=== PATIENT | male | born 1960 | race Caucasian/White ===

== ENCOUNTER 2018-03-31 13:02 | Inpatient (IN) ==
[2018-03-31] MEDS ORDERED: TORADOL IV ONE (13:11)
[2018-03-31] MEDS ORDERED: ZOFRAN IV ONE (13:11)
[2018-03-31] MEDS ORDERED: MORPHINE IV ONE (13:11)
[2018-03-31] MEDS ORDERED: NS 1,000 ML IV ONE (13:11)
[2018-03-31] MEDS ORDERED: TYLENOL PO ONE (13:17)
[2018-03-31] MEDS ORDERED: ZITHROMAX 500 MG/NS 500 MG/250 ML IVPB IV ONE (13:17)
[2018-03-31] MEDS ORDERED: ROCEPHIN 1 GM in NS 50 ML IV ONE (13:17)
--- NOTE | 2018-03-31 13:52 | Diag Imaging Result Doc PS360 ---
EXAM: CHEST-1 VIEW HISTORY: fall TECHNIQUE: Chest single view COMPARISON: None. FINDINGS: The lungs are well expanded. No contusion. No pneumothorax. The heart is not enlarged. The vessels are not distended. There are no infiltrates. No effusion identified. IMPRESSION: No injury. Electronically signed by Steve Lemus 03/31/2018 1:49 PM
--- NOTE | 2018-03-31 13:53 | Diag Imaging Result Doc PS360 ---
EXAM: XRAY PELVIS W/HIP 2-3VW LT HISTORY: fall, injury TECHNIQUE: Pelvis and left hip, three views COMPARISON: None. FINDINGS: There is a fracture to the left femoral neck extending to the greater trochanter. The femoral head remains in the acetabulum. Femoral shaft is rotated and superiorly placed. IMPRESSION: Proximal left femur fracture. Electronically signed by Steve Lemus 03/31/2018 1:50 PM
--- NOTE | 2018-03-31 14:02 | Diag Imaging Result Doc PS360 ---
EXAM: CT HEAD/C-SPINE W/O CONTRAST INDICATION: head injury/pain TECHNIQUE: This exam was performed using automated exposure control, adjustment of mA or kV according to patient size, and/or use of iterative reconstruction technique. COMPARISON: None. FINDINGS: Head: There is moderate diffuse brain atrophy. There is no definite acute infarct given the limited sensitivity of CT versus MRI. There is no discrete intracranial mass, mass effect, or intracranial hemorrhage. There is left maxillary sinus mucosal disease with partial opacification. The calvaria is intact. C-spine: There is multilevel moderate degenerative disease with loss of disc space height and marginal osteophyte formation at virtually every level. This causing at least mild central canal narrowing at a few levels, probably most significant at C2-3 and C3-4. Otherwise, there is no discrete fracture, subluxation, or intrinsic osseous lesion. The surrounding soft tissues are essentially unremarkable. IMPRESSION: 1.Brain atrophy as described but no evidence of acute intracranial pathology. 2.Multilevel degenerative arthropathy but no evidence of fracture or other definite acute C-spine injury. Electronically signed by Shravan Arias 03/31/2018 2:00 PM
[2018-03-31 14:33] LABS: BASO# 0.05 X1000 (0.0-0.2); BASO% 0.6 % (0.0-0.8); HEMATOCRIT 40.5 % (42.0-52.0); HEMOGLOBIN 13.7 g/dL (14.0-18.0); IMM GRAN# 0.04 X1000 (0.0-0.04); IMM GRAN% 0.5 % (0.0-0.5); LYMPH# 1.68 X1000 (1.2-3.4); LYMPH% 20.8 % (20.5-51.1); MCH 34.9 PG (27-31); MCHC 33.8 g/dL (33-37); MCV 103.3 FL (81-99); MONO# 1.31 X1000 (0.11-0.59); MONO% 16.2 % (1.7-9.3); MPV 9.9 FL (7.4-10.4); NEUT# 4.99 X1000 (1.4-6.5); NEUT% 61.9 % (42.2-75.2); PLT 202 X1000 (130-400); RBC 3.92 XMIL (4.7-6.1); RDW 12.7 % (11.5-14.5); WBC 8.07 X1000 (4.8-10.8)
--- NOTE | 2018-03-31 14:40 | PROVIDER DOCUMENTATION ---
This chart was entered by Guerline Salinas Scribe, acting as scribe for Vic Lam MD. HPI-Musculoskeletal Pain/Inj - GENERAL Chief Complaint: Extremity Pain Stated Complaint: left lower extremity pain Time Seen by Provider: 03/31/18 13:06 Source: patient, EMS, half-way records - HX OF PRESENT ILLNESS-MUSKULOSKELTAL Nature of Presenting Problem: 57 y/o male presents to ED with L hip pain onset this morning. long term staff reports he is typically very active, but did not move this morning. Staff states he had a cough yesterday. Pt is alert and has Downs Syndrome. Quality of Pain: reports: aching, sharp Severity in ED: moderate Onset/Duration: this morning Timing: still present Modifying Factors: worse with: movement Any recent injury?: Yes (fall?) Locality of Occurance: Home Similar Symptoms Previously?: No Recently seen or treated by another doctor?: No - FALL INJURY Location of Pain/Injury: reports: lower extremity Pain Radiation: reports: no radiation Reason for Fall: reports: unknown Symptoms prior to fall:: reports: none Loss of Consciousness: no loss of consciousness Injury Associated Symptoms: reports: joint pain (L hip) - HIP/PELVIS PAIN/INJURY Hip Pain Location: reports: hip (L) Pain Radiation: reports: no radiation Context / Method of Injury: reports: fall (?) Associated Symptoms: reports: denies symptoms - LOWER EXTREMITY PAIN/INJURY Lower Extremities Pain: hip: left Context / Method of Injury: reports: fell (?) Associated Symptoms: reports: denies symptoms Review of Systems - Adult - REVIEW OF SYSTEMS - ADULT ROS:: per care professionals (Lexi) Constitutional: reports: see HPI, chills Eyes: reports: no symptoms reported Ears, Nose, Mouth & Throat: reports: no symptoms reported Cardiovascular: reports: no symptoms reported Respiratory: reports: no symptoms reported Gastrointestinal: reports: no symptoms reported Genitourinary: reports: no symptoms reported Musculoskeletal: reports: no symptoms reported, joint pain (L hip). denies: back pain Integumentary: reports: no symptoms reported Neurological: reports: no symptoms reported Psychiatric: reports: no symptoms reported Endocrine: reports: no symptoms reported Hematologic/Lymphatic: reports: no symptoms reported Allergic/Immunologic: reports: no symptoms reported All Other Systems: Reviewed and Negative Past History - Adult - PAST MEDICAL HISTORY-ADULT Review of Records: reports: Old Records Reviewed, Nursing Assessment Review, Medications Reviewed Major Childhood Illnesses: reports: denies history Cardiovascular: reports: other (aortic insufficiency) Respiratory: reports: sleep apnea Gastrointestinal: reports: GERD Genitourinary: reports: kidney disease Musculoskeletal: reports: arthritis, other (gout) Neurological: reports: cognitive dysfunction (Downs Syndrome), Seizures/Epilepsy Psychiatric: reports: other (OCD) Endocrine/Immune: reports: thyroid disorder (hypo) Other Conditions: reports: rosacea - PRIOR SURGERIES/PROCEDURES Surgical/Procedure History: reports: other (hemorrhoids) - IMMUNIZATION STATUS Childhood Immunizations: See Nurse Assessment Flu Vaccine: See Nurse Assessment - FAMILY HISTORY Family History: reviewed, not pertinent - SOCIAL HISTORY Smoking: non-smoker Substance Use: none/never Alcohol Use Frequency: never Living Situation: group Physical Exam-Injury Related - Physical Exam-Injury Related Initial Vital Signs Reviewed: Yes General Appearance: appears well, alert, no apparent distress, anxious Eyes: PERRL/EOMI, pink conjunctivae, other (strabismus) Head, Ears, Nose, Mouth & Throat: normocephalic/atraumatic, normal ENT inspection, other (Downs; dry mucus membranes) Neck: non-tender, full range of motion Respiratory: chest non-tender, lungs clear, decreased breath sounds Cardiovascular: tachycardia, other (occasional ectopic beats) Abdominal Exam: normal bowel sounds, non tender, soft Back Exam: normal inspection, no CVA tenderness Extremity: normal range of motion, non-tender, normal gait, other (L hip pain with with internal and external rotation) Integumentary: normal color, warm/dry Neurologic: grossly normal Psych/Mental Status: normal mood/affect Progress - PLAN OF CARE/RESULTS Progress/Plan/Lab Results: Vital Signs - 8 hr 03/31/18 13:04 Temperature 101.6 F H Pulse Rate 101 H Respiratory Rate 19 Blood Pressure 131/72 O2 Sat by Pulse Oximetry 91 L Laboratory Results - last 24 hr 03/31/18 14:10 WBC 8.07 RBC 3.92 L Hgb 13.7 L Hct 40.5 L MCV 103.3 H MCH 34.9 H MCHC 33.8 RDW Std Deviation 12.7 Plt Count 202 MPV 9.9 Immature Gran % (Auto) 0.5 Neut % (Auto) 61.9 Lymph % (Auto) 20.8 [place] % (Auto) 16.2 H Eos % (Auto) 0.0 Baso % (Auto) 0.6 Immature Gran # (Auto) 0.04 Neut # (Auto) 4.99 Lymph # (Auto) 1.68 [place] # (Auto) 1.31 H Eos # (Auto) 0.00 Baso # (Auto) 0.05 Orders Category Date Time Status [facility] Insertion ORDERED Care 03/31/18 13:52 Active [facility] Loc NOW Care 03/31/18 13:09 Active CHEST-1 VIEW [RAD] Stat Exams 03/31/18 13:[address] HEAD/C-SPINE W/O CONTRAST [CT] Stat Exams 03/31/18 13:11 Completed XRAY PELVIS W/HIP 2-3VW LT [RAD] Stat Exams 03/31/18 13:11 Completed BLOOD CULTURE [BLDCUL] Stat Lab 03/31/18 13:16 Ordered CBC WITH ELECTRONIC DIFF [HEME] Stat Lab 03/31/18 14:10 Completed COMPREHENSIVE METABOLIC PANEL [CHEM] Stat Lab 03/31/18 14:10 Received LACTATE, PLASMA [CHEM] Stat Lab 03/31/18 14:10 Received MAGNESIUM [CHEM] Stat Lab 03/31/18 14:10 Received PRO B-NATRIURETIC PEPTIDE Stat Lab 03/31/18 14:10 Received PROTIME WITH INR [COAG] Stat Lab 03/31/18 14:10 Received TROPONIN T Stat Lab 03/31/18 14:10 Received TYPE & SCREEN [BBK] Stat Lab 03/31/18 14:[address] W/POSS RFLX CULT [URINALYSIS] Stat Lab 03/31/18 13:10 Uncollected VALPROIC ACID [TDM] Stat Lab 03/31/18 14:10 Received 0.9% Sodium Chloride Inj [Ns] 1,000 ml Med 03/31/18 13:11 Discontinued IV 999 mls/hr Acetaminophen [Tylenol] Med 03/31/18 13:17 Discontinued 1,000 mg PO NOW ONE Azithromycin 500 mg/Ns [Zithromax 500 mg/Ns] Med 03/31/18 13:17 Discontinued 500 mg in 250 ml IV NOW CefTRIAXONE [Rocephin] 1 gm Med 03/31/18 13:17 Discontinued 0.9% Sodium Chloride Inj [Ns] 50 ml IV NOW Ketorolac [Toradol] Med 03/31/18 13:11 Discontinued 30 mg IV NOW ONE Morphine Med 03/31/18 13:11 Discontinued 2 mg IV NOW ONE Ondansetron [Zofran] Med 03/31/18 13:11 Discontinued 4 mg IV NOW ONE EKG [EKG] Stat Ther 03/31/18 13:09 Ordered Result Diagrams: 03/31/18 14:10 - REASSESSMENT Reassessment #1 Time Reassessed: 14:38 Status: improving (better after pain meds. Given tylenol, IVF, IV rocephin/ zithromax for poss pne.) - EKG 1 Time of EKG reading by physician:: 13:19 EKG Read and Signed by:: Vic Lam EKG Interpretation (*Must complete 3 of following elements*): Abnormal Rate: 98 Rhythm: Sinus w/ premature atrial complexes w/ aberrant conduction Carver: normal QRS: poor R wave progression, other (L anterior fascicular block; inferior infarct) CO Interval: normal ST Wave: normal - XRAY 1 XRAY: Left XRAY Study: Pelvis, Hip Impression: Abnormal (FINDINGS: There is a fracture to the left femoral neck extending to the greater trochanter. The femoral head remains in the acetabulum. Femoral shaft is rotated and superiorly placed. IMPRESSION: Proximal left femur fracture. Electronically signed by Stevekike Lemus 03/31/2018 1:50 PM) 2 XRAY Study: Chest Impression: Normal (FINDINGS: The lungs are well expanded. No contusion. No pneumothorax. The heart is not enlarged. The vessels are not distended. There are no infiltrates. No effusion identified. IMPRESSION: No injury. Electronically signed by Stevekike Lemus 03/31/2018 1:49 PM) - CT/MRI 1 CT Study: Cervical Spine, Head Impression: Normal (Head: There is moderate diffuse brain atrophy. There is no definite acute infarct given the limited sensitivity of CT versus MRI. There is no discrete intracranial mass, mass effect, or intracranial hemorrhage. There is left maxillary sinus mucosal disease with partial opacification. The calvaria is intact. C-spine: There is multilevel moderate degenerative disease with loss of disc space height and marginal osteophyte formation at virtually every level. This causing at least mild central canal narrowing at a few levels, probably most significant at C2-3 and C3-4. Otherwise, there is no discrete fracture, subluxation, or intrinsic osseous lesion. The surrounding soft tissues are essentially unremarkable. IMPRESSION: 1.Brain atrophy as described but no evidence of acute intracranial pathology. 2.Multilevel degenerative arthropathy but no evidence of fracture or other definite acute C- spine injury. Electronically signed by Shravan Arias 03/31/2018 2:00 PM) - CONSULTS/PCP/HOSPITALIST Notification #1 *Consult/PCP/Hospitalist*: Dr. Morrell Time Discussed: 14:04 Reason/Comments: Downs; fever; L hip fracture; tachycardia Consult Disposition: Admit (at [facility]) #2 Consult: Dr. Root Time Discussed: 14:19 Reason/Comments: L hip fracture Consult Disposition: Admit (to [facility]) Departure - Departure Date of Disposition Decision: 03/31/18 Time of Disposition Decision: 14:37 DIAGNOSIS: Left displaced femoral neck fracture, Down's syndrome, Bronchitis Fall as cause of accidental injury at home as place of occurrence Qualifiers: Encounter type: initial encounter Qualified Code(s): W19.XXXA - Unspecified fall, initial encounter; Y92.009 - Unspecified place in unspecified non- institutional (private) residence as the place of occurrence of the external cause Fever Qualifiers: Fever type: unspecified Qualified Code(s): R50.9 - Fever, unspecified Aortic stenosis Qualifiers: Cardiac valve disease etiology: nonrheumatic Qualified Code(s): I35.0 - Nonrheumatic aortic (valve) stenosis Disposition: ADMITTED INPATIENT 09 Certified Medical Emergency: Emergent Condition: Fair Referrals and Follow-Ups: None,PCP [Primary Care Provider] - - Critical Care Note This patient required my direct & personal management of CC.: No Attestation - Physician/ KARIME Attestation Patient care was provided by Advanced Practice Provider:: No The physician spent face to face time with patient:: Yes Advanced Practice Provider documentation review:: Supervising physician onsite and consulted in the evaluation and care of this patient. The physician did have a face to face encounter with the patient. This chart was documented by the indicated scribe, (Guerline Salinas Scribe) and accurately reflects the services I performed and decisions made by , Vic Lam MD, as attested by the provider's signature.
--- NOTE | 2018-03-31 14:45 | EKG Report ---
Test Performed on : 03/31/2018 1:19:57 PM Test Reason : fall Blood Pressure : / mmHG Vent. Rate : 098 BPM Atrial Rate : 098 BPM P-R Int : 128 ms QRS Dur : 062 ms QT Int : 340 ms P-R-T Axes : 057 -46 023 degrees QTc Int : 434 ms Sinus rhythm. with premature atrial complexes. with aberrant conduction. Left anterior fascicular block Inferior infarct , age undetermined Abnormal ECG No previous ECGs available Unconfirmed Result
[2018-03-31 14:46] LABS: INR 1.08; PROTIME 14.6 Seconds (11.0-16.0)
[2018-03-31 14:51] LABS: AGAP 9; ALBUMIN 3.1 g/dL (3.5-5.0); ALKALINE PHOSPHATASE 66 U/L (32-122); BUN 16 mg/dL (8-22); CALCIUM 8.7 mg/dL (8.8-10.2); CHLORIDE 100 mmol/L (98-107); COSMO 280; CREATININE 1.1 mg/dL (0.7-1.2); ESTIMATED GFR > 60; GLUCOSE 185 mg/dL (70-104); GOT 35 U/L (10-34); GPT 10 U/L (10-44); POTASSIUM 4.8 mmol/L (3.5-5.1); SODIUM 137 mmol/L (136-145); TCO2 28 mmol/L (25-35); TOTAL PROTEIN 6.3 g/dL (6.3-8.3)
[2018-03-31 15:42] LABS: BILIRUBIN URINE NEGATIVE (NEGATIVE); BLOOD URINE 2+ (NEGATIVE); CLARITY SL. CLOUDY (CLEAR); COLOR YELLOW; GLUCOSE URINE NEGATIVE (NEGATIVE); KETONE URINE TRACE mg/dL (NEGATIVE); LEUKOCYTES URINE NEGATIVE (NEGATIVE); NITRITE URINE NEGATIVE (NEGATIVE); PROTEIN URINE NEGATIVE (NEGATIVE); UROBILINOGEN URINE NORMAL
[2018-03-31 15:43] LABS: URINE BACTERIA 2+ /HFP; URINE CAST NONE SEEN /LPF; URINE CRYSTAL NONE SEEN /HPF; URINE EPITHELIAL CELLS <10 /HPF (<10); URINE RBC <10 /HPF (<10); URINE SOURCE CATH; URINE WBC <10 /HPF (<10); URINE YEAST NONE SEEN /HPF
[2018-03-31 16:56] LABS: INFLUENZA A NEGATIVE (NEGATIVE); INFLUENZA B NEGATIVE (NEGATIVE)
[2018-03-31] MEDS ORDERED: ZOFRAN IV PRN (17:56)
[2018-03-31] MEDS: NS 1,000 ML IV SCH (21:21)
--- NOTE | 2018-03-31 21:25 | HISTORY AND PHYSICAL ---
CHIEF COMPLAINT: Left hip pain, onset this morning. HISTORY OF PRESENTING ILLNESS: This is a 57-year-old male who resides at the [facility] us[facility] locally. Has a history of Down syndrome. This morning the caregiver was going to get him up and he screamed out in pain and could not bear weight. He is normally up and active and ambulates himself. Staff that is with him presently is not aware of any falls. Nothing had been reported on off going shifts at the usp as well. They are doing an internal investigation there to determine if he possibly could have had a fall that and when he was last known normal. His workup in the emergency room showed a left hip and pelvic x-ray with a proximal left femur fracture, so he will be admitted to the [facility] for Orthopedic consultation and further evaluation and treatment. PAST MEDICAL HISTORY: Down syndrome, sleep apnea, GERD, chronic kidney disease, seizure, OCD, hypothyroidism and rosacea. PAST SURGICAL HISTORY: Hemorrhoidectomy. FAMILY HISTORY: Reviewed and noncontributory. SOCIAL HISTORY: Currently resides in a local usp. Denies any tobacco, alcohol or illicit drug use. ALLERGIES: Metoclopramide. HOME MEDICATIONS: A current list will need to be obtained and we will restart as appropriate. LABORATORY DATA: Showed a white blood cell count of 8.07, hemoglobin 13.7, hematocrit 40.5, platelets 202,000. PT and INR of 14.6 and 1.08. Sodium of 137, potassium 4.8, chloride 100, CO2 28, BUN of 16, creatinine of 1.1, glucose of 185, magnesium of 2. Troponin less than 0.010. ProBNP of 284. Plasma lactate of 2.6, valproic acid level is 61.10. Chest x-ray showed no injury. Head CT showed brain atrophy, but no evidence of acute intracranial pathology. CT of the cervical spine showed multilevel degenerative arthropathy, but no evidence of fracture or other definite acute cervical spine injury. Left hip pelvic x-ray showed a proximal left femur fracture. REVIEW OF SYSTEMS: Unable to obtain from patient. PHYSICAL EXAMINATION: He had a temperature of a 101.6, pulse 101, respirations 19, blood pressure 131/72, saturating 91% on room air. GENERAL: This is a 57-year-old male who is lying in the bed, but unable to answer questions appropriately at this time. HEENT: Normocephalic, atraumatic. Normal ENT inspection. Oropharynx and nares are clear. Eyes: Pupils are equal, round, reactive to light and accommodation. Extraocular movements are intact. NECK: Normal inspection. Normal range of motion. LUNGS: Clear to auscultation bilaterally with equal lung expansion and chest wall movement. HEART: With regular rate and rhythm. No murmurs, rubs or gallops. ABDOMEN: Soft, nontender, nondistended. Bowel sounds are present x 4 quadrants. MUSCULOSKELETAL: Unable to assess at this time. He does have left hip pain with any movement of his left extremity. NEUROLOGIC: The cranial nerves 2-12 appear grossly intact. ASSESSMENT: 1. Left femur fracture. 2. Fever. 3. Down syndrome. 4. Seizure disorder. Stable. PLAN: He will be admitted to the [facility]. We will consult Orthopedics. We will place him on a regular diet at this time until he is seen by Orthopedics. We will give him morphine 2 mg IV q.3 hours p.r.n., Zofran 4 mg IV q.4 hours p.r.n. We will recheck a CBC, BMP in the a.m. We will update and restart his home medications as appropriate, and further orders after being seen by attending and by Orthopedics. Dictated by PUNEET Maldonado for Sal Morrell MD cc: PUNEET Maldonado MD
--- NOTE | 2018-03-31 23:01 | HISTORY AND PHYSICAL ---
ADDENDUM: The patient presented with fever and altered mentation. He does have Down syndrome. He is a senior living patient. He has left hip pain since admission. He is usually very active, but today he is not as much. There is some concern over cough. When I saw him, he is just pretty out of it, sedated. He does open eyes, but he does not really communicate or talk. His workup was really unremarkable as far as infectious. Urine looked clear. No white count. Chest x-ray was clear. However, he does have a left femoral neck fracture which is the main reason he was transferred to [facility]. However, he does have some altered mentation, which there is not a clear reason for. Additionally, he has had fever but no white count. He has been empirically placed on Rocephin. It is certainly possible he could have aspirated. I am going to go ahead and CT his abdomen, pelvis and thorax to evaluate for fever and consider an ID consult if we do not have a clear etiology. I am going to continue the Rocephin for the time being and we will see how he does. If this is unrevealing and he has persistent fevers, we may have to consider other testing including LP and other guidelines per Dr. Hanley. Fever also could simply just be due to his fracture, so we will continue to monitor. On exam, really unremarkable. He is pale. He does open his eyes, but does not speak. His left and right legs are both externally rotated without evidence of any issues there. This is a [id number] encounter note with No Sanders. Further care per hospitalist group at the [facility]. cc: Sal Morrell MD
[2018-04-01] MEDS: NS 1,000 ML IV SCH ×2 (05:33→20:43)
[2018-04-01 06:12] LABS: BASO# 0.06 X1000 (0.0-0.2); EOS# 0.02 X1000 (0.0-0.7); EOS% 0.3 % (0.0-10.0); HEMATOCRIT 37.9 % (42.0-52.0); HEMOGLOBIN 12.2 g/dL (14.0-18.0); IMM GRAN# 0.06 X1000 (0.0-0.04); LYMPH# 1.25 X1000 (1.2-3.4); LYMPH% 20.1 % (20.5-51.1); MCH 34.6 PG (27-31); MCHC 32.2 g/dL (33-37); MCV 107.4 FL (81-99); MONO# 1.28 X1000 (0.11-0.59); MONO% 20.5 % (1.7-9.3); MPV 9.6 FL (7.4-10.4); NEUT# 3.56 X1000 (1.4-6.5); NEUT% 57.1 % (42.2-75.2); PLT 164 X1000 (130-400); RBC 3.53 XMIL (4.7-6.1); RDW 13.2 % (11.5-14.5); WBC 6.23 X1000 (4.8-10.8)
[2018-04-01 06:26] LABS: AGAP 5; BUN 17 mg/dL (8-22); CALCIUM 8.3 mg/dL (8.8-10.2); CHLORIDE 103 mmol/L (98-107); COSMO 280; CREATININE 1.2 mg/dL (0.7-1.2); ESTIMATED GFR > 60; GLUCOSE 111 mg/dL (70-104); POTASSIUM 4.7 mmol/L (3.5-5.1); SODIUM 139 mmol/L (136-145); TCO2 31 mmol/L (25-35)
[2018-04-01 06:47] LABS: LYMPHS 30 % (21-51); MONO 26 % (1-9); SEGS 44 % (42-75)
--- NOTE | 2018-04-01 06:58 | Diag Imaging Result Doc PS360 ---
EXAM: CT ABDOMEN/PELVIS W/WO SIVAKUMARAS 03/31/2018 HISTORY: fever, ams TECHNIQUE: This exam was performed using automated exposure control, adjustment of mA or kV according to patient size, and/or use of iterative reconstruction technique. COMMENT: There are no previous studies available for comparison. There is patchy air trapping in the lung bases with some increased interstitial markings particularly in the left costophrenic sulcus. Possibility of mild interstitial pulmonary edema cannot be excluded. There is dilatation and mucosal thickening in the distal esophagus. No air-fluid level is present however. There is no evidence of nephrolithiasis or hydronephrosis. There has been cholecystectomy. There is no evidence of abdominal aortic aneurysm and the mesenteric and renal arteries are patent. The pancreas is unremarkable. There are some calcified granulomata in the liver and spleen. The adrenal glands and spleen are not enlarged. The liver is otherwise unremarkable. There are no renal masses. There are some retained gastric contents. There is some gas and fluid within the small bowel without evidence of dilatation. There is fecal debris throughout the colon. Pelvis: The appendix is normal in appearance. There is a St catheter in the bladder which is completely empty. There is no evidence of free fluid. There are no masses and there is no evidence of significant adenopathy. Some dilatation of the distal left ureter is present however there is no evidence of ureterolithiasis. There is an intertrochanteric fracture of the left femur. There is bilateral spondylolysis at L5 and degenerative disc changes throughout the lumbar spine, but particularly at the L2-3 and L3-4 levels. IMPRESSION: The possibility of distal esophagitis cannot be excluded. Mild interstitial pulmonary edema and basilar air trapping. Left intertrochanteric femoral fracture. Degenerative changes in the lumbar spine with spondylolysis at L5. Electronically signed by Markel Duval 04/01/2018 6:56 AM
--- NOTE | 2018-04-01 10:25 | INFECTIOUS DISEASE CONSULT REP ---
DATE: 04/01/2018 CONCLUSION: The patient is seen for evaluation of fever. I think the patient's fever is secondary to urinary tract infection. RECOMMENDATIONS: I have discontinued Rocephin and have placed the patient on cefepime. DISCUSSION: Patient has Down syndrome and is unable to provide a history. The patient's nurse at the intermediate where the patient lives was present, as was his mother. The patient developed fever while he was at the intermediate. He fell and also fractured his left hip. His CBC shows a white count of 6230, hemoglobin 12.2, and platelet count 164,000. Creatinine is 1.2. GFR is greater than 60. Chest x-ray shows it is normal. Swab for influenza is negative. Urinalysis showed bacteria, but no white cells. Blood and urine cultures are pending. CT scan of the abdomen and pelvis shows possible esophagitis and pulmonary edema. PAST MEDICAL HISTORY: Patient has Down syndrome, benign prostatic hypertrophy, sleep apnea, gastroesophageal reflux disease, chronic kidney disease, seizure disorder, OCD, hypothyroidism, and rosacea. PAST SURGICAL HISTORY: Positive for hemorrhoidectomy. FAMILY HISTORY: Positive for diabetes mellitus, hypertension, myocardial infarction. SOCIAL HISTORY: The patient lives in a intermediate. He does not smoke cigarettes, drink alcoholic beverages or use illicit drugs. ALLERGY: The patient has an allergy to metoclopramide. MEDICATIONS: The patient's home medications include the following: Bentyl, Depakote, Lexapro, Synthroid, omeprazole, risperidone, sulfa, tamsulosin and trazodone. PHYSICAL EXAMINATION: Vital Signs: Temperature earlier was 102. The latest temperature now is 98.9, pulse 104, respirations 16, blood pressure 114/61. Patient weighs 160 pounds. General: This is an ill-appearing, middle-aged male. He is in no acute distress. Head/eyes/ears/nose/throat: No drainage is noted from the nose or ears. Patient did not open his mouth, so I was unable to examine it. Neck: No meningismus. Lungs: Clear to auscultation. Cardiovascular: Regular heart rate. Abdomen: Soft and nontender. Extremities: The patient's left great toe has a small ecchymosis on it. The patient did fall on that leg with resulting hip fracture and possibly the ecchymosis, which is very small on the great toe occurred when the patient fell. Neurologic: The patient is awake. He did not carry on a conversation with me. He did not move his extremities to request. Integument: No rash noted. Thank you for the consult. cc: Reginald Hanley MD
--- NOTE | 2018-04-01 10:31 | Diag Imaging Result Doc PS360 ---
EXAM: CT THORAX W/CONTRAST 04/01/2018 HISTORY: pneumonia TECHNIQUE: This exam was performed using automated exposure control, adjustment of mA or kV according to patient size, and/or use of iterative reconstruction technique. COMMENT: There is some ill-defined opacity in the medial portion of the right upper lobe. There is increased interstitial opacity in the costophrenic sulcus of both lower lobes particularly the left lower lobe. No dense consolidation is present. 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 The esophagus is slightly distended with gas. There is no evidence of significant adenopathy. There may be a hiatal hernia. The thoracic aorta is normal in caliber and there is no evidence of dissection. There is no evidence of pulmonary emboli. No abnormal fluid collections are present. The visualized skeleton is intact. IMPRESSION: Basilar pulmonary edema versus mild pneumonia. Questionable pneumonia in the right upper lobe. Electronically signed by Markel Duval 04/01/2018 10:29 AM
[2018-04-01] MEDS: MAXIPIME 2 GM in NS 100 ML IV SCH ×2 (10:48→20:45)
--- NOTE | 2018-04-01 12:47 | CONSULTATION ---
DATE OF CONSULTATION: 04/01/2018 CHIEF COMPLAINT: Hip pain on the left side. HISTORY OF PRESENT ILLNESS: This is a 58-year-old male who lives in a local halfway in [place]. His family reports he has a history of Down syndrome. One of the caregivers at the group homes reported that he screamed out in pain and he cannot bear any weight on the left leg. They report that he is normally an active person and ambulates by himself. Family and staff are not aware of the patient following anytime soon. They are also not aware of him having any kind of fever or infection lately. He was seen in the emergency department and CT scans/pelvic x-ray show an intertrochanteric fracture of the left femur. He was admitted to the hospitalist at [facility]. Family wishes to proceed with surgical fixation of the hip at this time. PAST MEDICAL HISTORY: Down syndrome, sleep apnea, GERD, chronic kidney disease, seizures, OCD, hypothyroidism, rosacea. PAST SURGICAL HISTORY: Hemorrhoidectomy. FAMILY HISTORY: Noncontributory. SOCIAL HISTORY: Currently, he lives in a halfway. Denies alcohol, tobacco, or illicit drugs. ALLERGIES: He is allergic to metoclopramide. HOME MEDICATIONS: They are currently working on the list of his home medications. The family reports that he does take Keppra for seizures. LABORATORY DATA: White blood cells 6.23, hemoglobin 12.2, hematocrit 37.9, INR 1.08. Sodium 139, potassium 4.7. BUN 17, creatinine 1.2, glucose 111. ProBNP is 284. The urine was cloudy and showed 2+ blood and 2+ bacteria. Valproic acid level was 61.10. His flu swab was negative. CT scan of the pelvis shows a left intertrochanteric femur fracture. REVIEW OF SYSTEMS: Ten-point review of systems was obtained and listed in the HPI. PHYSICAL EXAMINATION: Vital Signs: Temperature 99.6 axillary, pulse rate 108, respiratory rate 24, blood pressure 125/67, O2 saturation was 89 on 1.5 L. General: The patient is awake and unable to answer questions at this time. HEENT: Normocephalic, atraumatic. Normal ENT inspection. Neck: He has normal range of motion. Chest: There is equal chest expansion. Heart: There is some tachycardia with a regular rate and rhythm. Abdomen: Soft, nontender. MUSCULOSKELETAL: The left leg is externally rotated and slightly shortened. There is mild tenderness to touch to the lateral aspect of the left hip. There is negative Homans sign. There is good pedal pulses. There is no redness or signs of infection about the hip. ASSESSMENT: 1. Left intertrochanteric femur fracture. 2. Fever. 3. Down syndrome. 4. Seizure disorder that is stable. PLAN: We will monitor this patient at this time. We will plan a trochanteric fixation nail of the left femur at some point during this hospital stay. We will take the recommendations from Infectious Disease. The family agrees that if he is still having fever, they do not want to have surgery at this time. They do agree with the plan to do TFN on the left hip. All questions were answered. Thank you again for this consult. Dictated by PUNEET Taylor for Matthew Hoover MD cc: PUNEET Taylor MD
[2018-04-01] MEDS: TYLENOL PO PRN (13:06)
[2018-04-01] MEDS ORDERED: ROCEPHIN 1 GM in NS 50 ML IV SCH (14:30)
--- NOTE | 2018-04-01 15:15 | CONSULTATION ---
DATE OF CONSULTATION: 04/01/2018 ADDENDUM: Since I saw the patient and looked at his radiographic and laboratory studies, a CT scan of the thorax has been obtained on the patient. The impression of the radiologist was that the patient has basilar pulmonary edema versus mild pneumonia. There also is a questionable pneumonia in the right upper lobe. The patient is on cefepime, which I think would be good treatment for the patient's presumed urinary tract infection, and also I think it would be a good treatment in case the patient does have pneumonia as well. cc: Reginald Hanley MD
--- NOTE | 2018-04-01 19:53 | PROGRESS NOTE ---
DATE: 04/01/2017 SUBJECTIVE: Patient is sleeping comfortable. Sister who is at bedside report that he was doing fine. He was able to sleep last night. He was not complaining of any pain this morning. OBJECTIVE: Vital Signs: Temperature 101.1 degrees, heart rate 108, respiratory rate 24, blood pressure 125/67, O2 saturation of 97% on 2 L nasal cannula. General: This is a chronically ill- looking 58-year-old male with history of Down syndrome lying in bed sleeping comfortable no acute distress. Cardiovascular: S1, S2 heard. No murmurs, gallops, or rubs. Regular rate and rhythm. Respiratory: Clear bilaterally to auscultation. No work of breathing or using accessory muscles. Abdomen: Soft, nontender to palpation, bowel sounds present. No organomegaly. Extremities: No clubbing, cyanosis, or edema. Peripheral pulses present in both legs. Neurological: The patient is sleepy, not able to evaluate him at this time. LABORATORY DATA: White cell count 6.23, hemoglobin 12.2, hematocrit 37.9, platelets 164,000 with normal BMP and chest CT showed basilar pulmonary edema versus mild pneumonia questionable pneumonia in the right upper lobe. ASSESSMENT AND PLAN: 1. Left femur fracture. Orthopedics has been consulted but family reports that he does not want to have any surgery unless infection is treated. I talked to them and explained to them that it is reasonable to wait for him to be 24 to 48 hour afebrile in order to proceed with surgery they expressed the understanding and I think at this point most likely surgery will be performed on Wednesday of course if okay with Orthopedics help appreciated. 2. Down syndrome aware. 3. Seizure disorder aware. Patient has been restarted on home medication. 4. Disposition. Will continue to monitor this patient closely. Most likely will wait 24 to 48 hours afebrile to see to perform surgery. cc: Gino Rebolledo MD
[2018-04-01] MEDS: MORPHINE IV PRN (20:42)
[2018-04-01] MEDS: AZULFIDINE PO SCH (20:48)
[2018-04-01] MEDS: RISPERDAL PO SCH (20:48)
[2018-04-01] MEDS: DESYREL PO SCH (20:48)
[2018-04-01] MEDS: DEPAKOTE ER PO SCH (20:48)
[2018-04-01] MEDS: FLOMAX PO SCH (20:48)
[2018-04-02] MEDS: NS 1,000 ML IV SCH ×3 (04:32→21:40)
[2018-04-02] MEDS ORDERED: NARCAN IV ONE (05:59)
[2018-04-02] MEDS ORDERED: NARCAN ONE (06:05)
[2018-04-02] MEDS: SYNTHROID PO SCH (06:34)
[2018-04-02] MEDS: AZULFIDINE PO SCH ×3 (06:36→21:15)
[2018-04-02] MEDS: MAXIPIME 2 GM in NS 100 ML IV SCH ×2 (10:55→22:30)
[2018-04-02] MEDS: LEXAPRO PO SCH (10:58)
[2018-04-02] MEDS: RISPERDAL PO SCH ×2 (10:58→21:16)
--- NOTE | 2018-04-02 12:10 | PROGRESS NOTE ---
DATE: 04/02/2018 SUBJECTIVE: The patient is a pleasant 58-year-old male with a left intertrochanteric femur fracture. He is currently undergoing evaluation for a questionable urinary tract infection and questionable pneumonia. He is currently resting comfortably. OBJECTIVE: On physical exam the patient's leg is held in an externally rotated position. He has tenderness with any palpation or general movement. The calf is soft. LABORATORY DATA: His WBC from yesterday was 6.23. hemoglobin 12.2, hematocrit 37.9, and platelets 164. IMPRESSION: Left intertrochanteric femur fracture. PLAN: Discuss treatment options with the patient's sister and would recommend proceeding with intramedullary nailing of the left femur once he is medically cleared. All questions were answered and we will await preoperative medical clearance. cc: Matthew Hoover MD
[2018-04-02 12:26] LABS: AGAP 9; BUN 10 mg/dL (8-22); CALCIUM 8.9 mg/dL (8.8-10.2); CHLORIDE 98 mmol/L (98-107); COSMO 277; CREATININE 0.9 mg/dL (0.7-1.2); ESTIMATED GFR > 60; GLUCOSE 133 mg/dL (70-104); POTASSIUM 4.3 mmol/L (3.5-5.1); SODIUM 138 mmol/L (136-145); TCO2 31 mmol/L (25-35)
[2018-04-02 12:35] LABS: BASO# 0.05 X1000 (0.0-0.2); BASO% 0.7 % (0.0-0.8); EOS# 0.04 X1000 (0.0-0.7); EOS% 0.5 % (0.0-10.0); HEMATOCRIT 35.9 % (42.0-52.0); HEMOGLOBIN 12.3 g/dL (14.0-18.0); LYMPH% 17.7 % (20.5-51.1); MCH 35.8 PG (27-31); MCHC 34.3 g/dL (33-37); MCV 104.4 FL (81-99); MONO# 1.22 X1000 (0.11-0.59); MONO% 16.6 % (1.7-9.3); MPV 9.4 FL (7.4-10.4); NEUT# 4.74 X1000 (1.4-6.5); NEUT% 64.5 % (42.2-75.2); PLT 175 X1000 (130-400); RBC 3.44 XMIL (4.7-6.1); RDW 12.8 % (11.5-14.5); WBC 7.35 X1000 (4.8-10.8)
[2018-04-02] MEDS ORDERED: VANCOMYCIN IV PER PHARMACY MISC SCH (13:00)
[2018-04-02 13:07] LABS: BANDS 2 % (0-1); EOS 2 % (1-10); LYMPHS 16 % (21-51); MONO 14 % (1-9); SEGS 66 % (42-75)
--- NOTE | 2018-04-02 13:30 | PROGRESS NOTE ---
DATE: 04/02/2018 SUBJECTIVE: The patient is awake and according to sister who is at bedside patient is his baseline. He had fever 100.4 today. OBJECTIVE: Vital Signs: Temperature 100.7, heart rate 98, respiratory rate 16 , blood pressure 111/60, O2 sat 94% on 4 L nasal cannula. General: This is a chronically ill- looking, 58-year-old male with history of Down syndrome lying in bed, awake, of course. Does not answer any questions. Cardiovascular: S1, S2 heard. No murmurs, gallops or rubs. Regular rate and rhythm. Respiratory: Clear bilaterally to auscultation. No work of breathing or using accessory muscles. Abdomen: Soft, nontender to palpation. Bowel sounds present. No organomegaly. Extremities: No clubbing, cyanosis or edema. Peripheral pulses present in both legs. Neurologic: Patient is an awake. Is nonverbal. Moves 4 extremities spontaneously. LABORATORY DATA: White cell count 7.35, hemoglobin 12.3, hematocrit 35.9, platelets 175,000. Normal BMP. ASSESSMENT AND PLAN: 1. Left femur fracture. Orthopedics planning to do surgical fixation of this, but they require medical clearance. The patient continues to spike fever and he is on cefepime. I think if we add vancomycin to his current treatment, I think this patient will be much better and I think he will be able to undergo surgery tomorrow. 2. Down syndrome, aware. Will continue home medications. 3. Seizure disorder, aware. The patient has been restarted on home medications. 4. Disposition: I think at this point we will continue to monitor this patient closely and the patient has been cleared medically so if he can have surgery tomorrow as per Orthopedics I still think it is reasonable. Addendum: Patient as per nurse became very obtunded and he was very difficult to arouse. He has history of seizures and apparently he has had one in the floor. At this point I will send patient to ICU for better monitoring, request EEG and Neuro consult for Wednesday. It is very to tell if because of seizures and fever this patient is developing a meningitis or encephalitis. He has UTI and mild pneumonia. He was on Cefepime and considering that he continues to have fever I will add Vancomycin to his current treatment and will wait for Dr. Hanley to make any modifications to his antibiotics if needed. Will monitor patient closely. cc: Gino Rebolledo MD [facility]
[2018-04-02 14:18] LABS: ALLEN TEST NO; BE 8.3 mmoll (-3.0-3.0); BLOOD TYPE ARTERIAL; HCO3-(ACT) 31.4 mmoll (20.0-26.0); METHB 0.7 % (0.0-1.5); O2(CT) 15.6 mL/dL (15.0-23.0); O2HB 96.4 % (95.0-99.0); PCO2(98.6) 48 mmHg (35-45); PO2(98.6) 174 mmHg (60-100); SAMPLE BLOOD; SAO2 98.4 % (95.0-100.0); THB 11.2 g/dL (11.5-17.4); pH(98.6) 7.45 (7.35-7.45)
[2018-04-02 14:19] LABS: MODALITY PRB
[2018-04-02] MEDS ORDERED: ATIVAN IV PRN (14:22)
--- NOTE | 2018-04-02 14:22 | Diag Imaging Result Doc PS360 ---
EXAM: CHEST-PORTABLE 04/02/2018 HISTORY: nonresponsive TECHNIQUE: AP portable at 1412 COMMENT: There is ill-defined opacity over the right base which was not the case on 03/31/2018. IMPRESSION: Atelectasis versus pneumonia right lower lobe. Electronically signed by Markel Duval 04/02/2018 2:20 PM
[2018-04-02] MEDS ORDERED: VANCOMYCIN 2,000 MG in NS 500 ML IV ONE (14:30)
--- NOTE | 2018-04-02 20:56 | Diag Imaging Result Doc PS360 ---
EXAM: CHEST-PORTABLE 04/02/2018 HISTORY: desaturation TECHNIQUE: AP portable at 2046 COMMENT: There is increased opacity and volume loss in the right lower lobe compared to 1412. IMPRESSION: Atelectasis versus pneumonia right lower lobe. Electronically signed by Markel Duval 04/02/2018 8:53 PM
[2018-04-02] MEDS ORDERED: DEMEROL IV ONE ×3 (20:57→21:19)
[2018-04-02] MEDS ORDERED: OFIRMEV 1000 MG/ISOTONIC SOLN 1,000 MG/100 ML BOTTLE IV ONE ×2 (20:57→21:00)
[2018-04-02 21:10] LABS: ALLEN TEST YES; BE 7.1 mmoll (-3.0-3.0); BLOOD TYPE ARTERIAL; METHB 0.7 % (0.0-1.5); O2(CT) 12.5 mL/dL (15.0-23.0); PCO2(98.6) 42 mmHg (35-45); SAMPLE BLOOD; SAO2 77.6 % (95.0-100.0); THB 11.7 g/dL (11.5-17.4); pH(98.6) 7.48 (7.35-7.45)
[2018-04-02 21:13] LABS: MODALITY NRB; O2HB 76.2 % (95.0-99.0); PO2(98.6) 36 mmHg (60-100)
[2018-04-02] MEDS: DEPAKOTE ER PO SCH (21:15)
[2018-04-02] MEDS: FLOMAX PO SCH (21:16)
[2018-04-02] MEDS: DESYREL PO SCH (21:16)
[2018-04-02] MEDS ORDERED: DEMEROL ONE (21:27)
[2018-04-02] MEDS ORDERED: NS 1,000 ML IV ONE (21:36)
[2018-04-02] MEDS ORDERED: SOLU-CORTEF IV ONE (21:48)
[2018-04-02] MEDS ORDERED: LEVOPHED 8 MG in D5 1/2 NS 250 ML IV SCH (22:00)
[2018-04-02 22:25] LABS: ALLEN TEST YES; BLOOD TYPE ARTERIAL; HCO3-(ACT) 29.6 mmoll (20.0-26.0); METHB 0.8 % (0.0-1.5); O2(CT) 14.2 mL/dL (15.0-23.0); O2HB 96.1 % (95.0-99.0); PCO2(98.6) 47 mmHg (35-45); PO2(98.6) 89 mmHg (60-100); SAMPLE BLOOD; SAO2 97.3 % (95.0-100.0); THB 10.4 g/dL (11.5-17.4); pH(98.6) 7.43 (7.35-7.45)
[2018-04-02 22:26] LABS: MODALITY BI PAP
[2018-04-03] MEDS: AZULFIDINE PO SCH ×3 (04:38→20:47)
[2018-04-03 05:15] LABS: ALLEN TEST YES; BE 3.5 mmoll (-3.0-3.0); BLOOD TYPE ARTERIAL; HCO3-(ACT) 27.6 mmoll (20.0-26.0); METHB 0.8 % (0.0-1.5); O2(CT) 22.5 mL/dL (15.0-23.0); O2HB 95.2 % (95.0-99.0); PCO2(98.6) 49 mmHg (35-45); PO2(98.6) 90 mmHg (60-100); SAMPLE BLOOD; THB 16.8 g/dL (11.5-17.4); pH(98.6) 7.39 (7.35-7.45)
[2018-04-03 05:19] LABS: MODALITY BI PAP
[2018-04-03 06:10] LABS: BASO# 0.08 X1000 (0.0-0.2); BASO% 0.5 % (0.0-0.8); EOS# 0.01 X1000 (0.0-0.7); EOS% 0.1 % (0.0-10.0); HEMATOCRIT 34.3 % (42.0-52.0); HEMOGLOBIN 11.2 g/dL (14.0-18.0); IMM GRAN# 0.09 X1000 (0.0-0.04); IMM GRAN% 0.6 % (0.0-0.5); LYMPH# 1.43 X1000 (1.2-3.4); LYMPH% 8.8 % (20.5-51.1); MCH 33.8 PG (27-31); MCHC 32.7 g/dL (33-37); MCV 103.6 FL (81-99); MONO# 1.95 X1000 (0.11-0.59); MONO% 12.1 % (1.7-9.3); MPV 9.8 FL (7.4-10.4); NEUT# 12.61 X1000 (1.4-6.5); NEUT% 77.9 % (42.2-75.2); PLT 215 X1000 (130-400); RBC 3.31 XMIL (4.7-6.1); RDW 12.2 % (11.5-14.5); WBC 16.17 X1000 (4.8-10.8)
[2018-04-03 07:46] LABS: BANDS 6 % (0-1); LYMPHS 8 % (21-51); MONO 6 % (1-9); SEGS 80 % (42-75)
[2018-04-03] MEDS: MORPHINE IV PRN ×4 (07:50→21:58)
[2018-04-03] MEDS: NS 1,000 ML IV SCH ×2 (07:53→18:19)
[2018-04-03] MEDS: SYNTHROID PO SCH (07:54)
[2018-04-03] MEDS: MAXIPIME 2 GM in NS 100 ML IV SCH (08:03)
[2018-04-03] MEDS: RISPERDAL PO SCH ×2 (08:04→20:47)
[2018-04-03] MEDS: LEXAPRO PO SCH (08:04)
[2018-04-03] MEDS: VANCOMYCIN 1,600 MG in NS 250 ML IV SCH (08:04)
--- NOTE | 2018-04-03 08:33 | Diag Imaging Result Doc PS360 ---
EXAM: CT ANGIOGRM PULMONARY ARTERIES 04/02/2018 HISTORY: r/o PE TECHNIQUE: This exam was performed using automated exposure control, adjustment of mA or kV according to patient size, and/or use of iterative reconstruction technique. COMMENT: 3-D MIPS were performed. The current examination is compared with the previous study of 04/01/2018. There are no filling defects in the pulmonary arteries. 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 The aorta is still normal in caliber and still there is no evidence of dissection. There is increasing opacification of the right upper lobe and narrowing of the upper lobe bronchus and bronchus intermedius. The right lower lobe is now completely atelectatic and opacified. There is also complete opacification of the middle lobe. There is mildly increased interstitial markings in the left lower lobe with some groundglass opacity present posterior laterally on image 85. This may represent pulmonary edema or pneumonia. IMPRESSION: Likely mucous plugging in the right upper lobe bronchus and bronchus intermedius. There has been progressive worsening of opacification and volume loss on the right since the previous CT scan and even since the previous portable chest radiograph at 2046. The possibility of bacterial pneumonia cannot be excluded. No evidence of pulmonary emboli is present. Electronically signed by Markel Duval 04/03/2018 8:30 AM
--- NOTE | 2018-04-03 08:52 | PROGRESS NOTE ---
DATE: 04/03/2018 SUBJECTIVE: The patient is a pleasant, 58-year-old male with a left intertrochanteric femur fracture. He was recently scheduled for surgery this morning. However, the patient had an episode where he had desaturation on the floor and required transfer to the ICU. He is currently on 90% BiPAP. OBJECTIVE: His repeat chest x-ray showed some worsening compared to his previous film with the right lower lobe. He appears to be resting, in no acute distress at this time. His vital signs are stable. His left lower extremities is still in an externally rotated position and flexed. Compartments are soft. His white count is elevated to 16.17, his hemoglobin is 11.2, hematocrit is 34.3, and platelets are 215,000. IMPRESSION: Left intertrochanteric femur fracture. PLAN: At this time, the patient is undergoing supportive treatment. Continue with IV antibiotics. We will monitor his progress over the next several days to determine when and to await preoperative medical clearance with regards to surgical fixation of his fracture. We will discuss with the nurse to monitor for his heels for any early breakdown and they will elevate with pillows. cc: Matthew Hoover MD
[2018-04-03 11:03] LABS: AGAP 11; ALBUMIN 2.7 g/dL (3.5-5.0); ALKALINE PHOSPHATASE 72 U/L (32-122); BUN 12 mg/dL (8-22); CALCIUM 7.9 mg/dL (8.8-10.2); CHLORIDE 103 mmol/L (98-107); COSMO 287; ESTIMATED GFR > 60; GLUCOSE 136 mg/dL (70-104); GOT 59 U/L (10-34); GPT 33 U/L (10-44); POTASSIUM 4.1 mmol/L (3.5-5.1); SODIUM 143 mmol/L (136-145); TCO2 29 mmol/L (25-35); TOTAL BILIRUBIN 0.66 mg/dL (0.20-1.00); TOTAL PROTEIN 5.5 g/dL (6.3-8.3)
--- NOTE | 2018-04-03 11:24 | PROGRESS NOTE ---
DATE: 04/03/2018 SUBJECTIVE: Patient has been transferred overnight to the intensive care unit because patient started to shake and apparently the O2 saturation dropped to the 80s and he was placed on non- rebreather mask, but he was saturating in the 80s and also he was shaking and having fever. Is was reported that those movements did not look like truly seizure activity. OBJECTIVE: Vital Signs: Temperature degrees, heart rate 70, respiratory rate 20, blood pressure 130/50, O2 saturation 100% on BiPAP machine. General: This is a chronically ill-looking, 58-year- old male with history of Down syndrome lying in bed in no acute distress. He does not answer questions. Cardiovascular: S1, S2 heard. Tachycardic. No murmurs, gallops, or rubs. Regular rate and rhythm. Respiratory: Coarse breath sounds present in both pulmonary bases. Patient is not using any accessory muscles or having work of breathing. Abdomen : Soft, a little bit distended, but nontender to palpation. Bowel sounds present. No organomegaly. Extremities: No clubbing, cyanosis, or edema. Peripheral pulses present in both legs. Neurological: Patient is definitely sleepier. He does not answer any questions. He is awaiting a BiPAP mask. Nonverbal. Moves 4 extremities spontaneously. LABORATORY DATA: White cell count 16.1, hemoglobin 11.2, hematocrit 34.3, platelets 215,000 with ABG that shows pH 7.39 with pCO2 49, PO2 90. No BMP from today. IMAGING: CT angiogram of the pulmonary arteries showed likely mucous plugging in the right upper lobe bronchus and bronchus intermedius with progressive worsening of the and volume loss in the right since previous CT scan. Pneumonia cannot be excluded. ASSESSMENT AND PLAN: 1. Pneumonia. The patient has mild pneumonia in the 1st CT scan, but because of this sudden onset of the shortness of breath last night, he got a CT angiogram of the chest, which did not show any pulmonary embolism, but did show pneumonia that apparently was getting worse. His oxygen needs are getting higher and now, he is on BiPAP, FiO2 of 80%. At this point, also the vasopressors in this case, norepinephrine that he was on was already discontinued. So at this point we will continue with cefepime and vancomycin. We will provide in this case breathing treatments every 4 hours as scheduled and every 2 hours p.r.n. We will continue with the same management. 2. Down syndrome. Aware. We will continue home medications. 3. Left femur fracture. Of course, he is not able to undergo any surgery considering all the medical problems. We will continue to monitor this patient and will inform Orthopedics whenever this patient is cleared medically. 4. Disposition. We will continue to monitor this patient closely in the intensive care unit. cc: Gino Rebolledo MD [facility]
--- NOTE | 2018-04-03 14:11 | INFECTIOUS DISEASE PROGRESS NO ---
DATE: 04/03/2018 PRESENT ILLNESS: The patient has a right upper lobe opacification and volume loss secondary to mucus plugging. I think there is a component of pneumonia involved in the right upper lobe plugging. MEDICATIONS: The patient is on a combination of vancomycin and cefepime. This is the second day of the combination. PHYSICAL EXAMINATION: Vital Signs: Temperature is 99.3 degrees, pulse 87, respirations 14, blood pressure 110/60. General: This is an ill-appearing, middle-aged male. He is in no acute distress. Head/eyes/ears/nose/throat: No drainage noted from the nose or ears. The patient is wearing a BiPAP mask at this time. Neck: No stiffness. Lungs: There were bilateral rhonchi. Cardiovascular: Heart rate is regular. Abdomen: Soft and nontender. Extremities: The legs are edematous but not erythematous. Neurologic: The patient is lethargic. LAB AND X-RAY: CBC today showed an increase in the white count to 16,170, hemoglobin 11.2, platelet count 215,000. Blood gases show a pH of 7.39, a PO2 of 90, and pCO2 of 49. Creatinine is 1. GFR is greater than 60. The AST is 59. Repeat blood cultures are pending. Earlier blood cultures from the 31 of March and urine culture were negative. CT angiogram shows mucous plugging in the right upper lobe bronchus which is causing worse opacification and volume loss in the right upper lobe. It is my opinion that the patient has pneumonia in the lung also. ASSESSMENT AND PLAN: The patient's white count is increasing. I think he has pneumonia. I have discontinued cefepime and placed the patient on Zosyn. I plan to continue vancomycin for the time being. COMORBIDITIES: He has Down syndrome. He has sleep apnea. He has gastroesophageal reflux disease. He also has a seizure disorder. The patient also has benign prostatic hypertrophy and chronic kidney disease. cc: Reginald Hanley MD
[2018-04-03] MEDS: ZOSYN 3.375 GM in NS 50 ML IV SCH ×2 (14:30→20:46)
[2018-04-03] MEDS: DUONEB (A & A) INH SCH ×4 (15:55→23:35)
[2018-04-03] MEDS: MUCOMYST 20% INH SCH (19:35)
[2018-04-03] MEDS: DEPACON 250 MG in NS 50 ML IV SCH (20:46)
[2018-04-03] MEDS: DESYREL PO SCH (20:47)
[2018-04-03] MEDS: FLOMAX PO SCH (20:47)
--- NOTE | 2018-04-03 22:03 | CONSULTATION ---
DATE OF CONSULTATION: 04/03/2018 CHIEF COMPLAINT: Left hip pain. HISTORY OF PRESENT ILLNESS: This is a 58-year-old male, who has a history of Down syndrome. He currently resides in a [facility] locally. Recent pelvic x-ray revealed a fracture to the proximal left femur. He also had a chest CT scan that revealed basilar pulmonary edema versus mild pneumonia, with questionable pneumonia in the right upper lobe. PAST MEDICAL HISTORY: Down syndrome, sleep apnea, GERD, chronic kidney disease, seizures, hypothyroidism, and rosacea. PAST SURGICAL HISTORY: Hemorrhoidectomy. FAMILY HISTORY: Noncontributory. SOCIAL HISTORY: Currently resides in a local [facility]. Denies alcohol, tobacco, or illicit drug use. ALLERGIES: Metoclopramide. HOME MEDICATIONS: See home reconciliation list. REVIEW OF SYSTEMS: A 10-point review of systems was conducted, and the pertinent is listed within the HPI, otherwise noncontributory. PHYSICAL EXAMINATION: General: This is a 58-year-old male who has Down syndrome. Appears in no acute distress at the present. Currently, using a BiPAP during assessment. HEENT: Head is atraumatic, normocephalic. Pupils are equal and reactive. Mucous membranes moist. Extraocular eye movements intact. Neck: Supple. Trachea midline. Lungs: Clear to auscultation bilaterally. No labored breathing. Cardiovascular: Regular rate and rhythm. No murmurs, gallops, or rubs. Abdomen: Soft, nontender, nondistended. Bowel sounds present in all 4 quadrants. Extremities: Without edema. LABORATORY DATA: White blood cells 16.17. Red blood cells 3.31. Hemoglobin 11.2, hematocrit 34.3. pH 7.39, pCO2 49, PO2 90, HCO3 27.6, base excess 3.5, oxyhemoglobin 95.2. Sodium 143, potassium 4.1, chloride 103, carbon dioxide 29, BUN 12, creatinine 1.0. Calcium 7.9. AST 59, ALT 33. ProBNP was 284. Total protein 5.5, albumin 2.7. DIAGNOSTIC DATA: As mentioned in the HPI. ASSESSMENT AND PLAN: 1. Pneumonia possible, basilar pulmonary edema. Continue DuoNebs, Mucomyst, and IV antibiotics. Incentive spirometry and chest physiotherapy. 2. Left femur fracture. Orthopedics has been consulted. 3. Seizure disorder. Continue with home medication regimen. 4. Obstructive sleep apnea. Continue with BiPAP therapy. 5. Continue deep venous thrombosis prophylaxis with sequential compression devices bilaterally. Thank you for the courtesy of this consult. Dictated by PUNEET Spencer for Evangelina Robertson MD cc: PUNEET Spencer MD
[2018-04-04] MEDS: ZOSYN 3.375 GM in NS 50 ML IV SCH ×4 (02:45→21:53)
[2018-04-04] MEDS: DEPACON 250 MG in NS 50 ML IV SCH ×4 (03:06→20:25)
[2018-04-04] MEDS: VANCOMYCIN 1,600 MG in NS 250 ML IV SCH ×2 (03:06→21:53)
[2018-04-04] MEDS: DUONEB (A & A) INH SCH ×6 (03:08→23:18)
[2018-04-04] MEDS: AZULFIDINE PO SCH ×3 (04:41→20:25)
[2018-04-04 04:58] LABS: ALLEN TEST YES; BE 5.4 mmoll (-3.0-3.0); BLOOD TYPE ARTERIAL; O2(CT) 13.4 mL/dL (15.0-23.0); PCO2(98.6) 46 mmHg (35-45); PO2(98.6) 50 mmHg (60-100); SAMPLE BLOOD; SAO2 90.3 % (95.0-100.0); THB 10.7 g/dL (11.5-17.4); pH(98.6) 7.43 (7.35-7.45)
[2018-04-04 04:59] LABS: MODALITY CANNULA
[2018-04-04 05:19] LABS: BASO# 0.08 X1000 (0.0-0.2); BASO% 0.9 % (0.0-0.8); EOS# 0.11 X1000 (0.0-0.7); EOS% 1.2 % (0.0-10.0); HEMATOCRIT 28.5 % (42.0-52.0); HEMOGLOBIN 9.3 g/dL (14.0-18.0); IMM GRAN# 0.03 X1000 (0.0-0.04); IMM GRAN% 0.3 % (0.0-0.5); LYMPH# 1.56 X1000 (1.2-3.4); LYMPH% 17.2 % (20.5-51.1); MCH 33.9 PG (27-31); MCHC 32.6 g/dL (33-37); MONO# 1.14 X1000 (0.11-0.59); MONO% 12.6 % (1.7-9.3); MPV 9.4 FL (7.4-10.4); NEUT# 6.16 X1000 (1.4-6.5); NEUT% 67.8 % (42.2-75.2); PLT 209 X1000 (130-400); RBC 2.74 XMIL (4.7-6.1); RDW 12.1 % (11.5-14.5); WBC 9.08 X1000 (4.8-10.8)
[2018-04-04 05:25] LABS: AGAP 8; BUN 14 mg/dL (8-22); CALCIUM 8.2 mg/dL (8.8-10.2); CHLORIDE 106 mmol/L (98-107); COSMO 283; CREATININE 0.9 mg/dL (0.7-1.2); ESTIMATED GFR > 60; GLUCOSE 86 mg/dL (70-104); POTASSIUM 3.7 mmol/L (3.5-5.1); SODIUM 142 mmol/L (136-145); TCO2 28 mmol/L (25-35)
[2018-04-04] MEDS: NS 1,000 ML IV SCH ×2 (05:27→13:59)
[2018-04-04] MEDS: SYNTHROID IV SCH (06:08)
--- NOTE | 2018-04-04 06:14 | Diag Imaging Result Doc PS360 ---
EXAM: CHEST-1 VIEW HISTORY: SOB TECHNIQUE: Portable chest single view COMPARISON: 04/02/2018 FINDINGS: The lungs are well expanded. No cardiomegaly. No pleural effusions identified. There is pulmonary edema and there may be an underlying infiltrate in the right base. IMPRESSION: No interval improvement. Electronically signed by Steve Lemus 04/04/2018 6:11 AM
--- NOTE | 2018-04-04 07:26 | INFECTIOUS DISEASE PROGRESS NO ---
DATE: 04/04/2018 PRESENT ILLNESS: The patient, on his most recent x-ray, could have a right lower lobe pneumonia. MEDICATIONS: The patient is receiving vancomycin and Zosyn for the second day. PHYSICAL EXAMINATION: Vital Signs: Temperature is 98.8 degrees, pulse 89, respirations 27, blood pressure 130/57. General: This is an ill-appearing, middle-aged male. He has Down syndrome. He is in no acute distress. Head, Eyes, Ears, Nose, and Throat: He did track with his eyes. No drainage noted from the nose or ears. The patient did not open his mouth. Neck: No stiffness. Lungs: Clear to auscultation. Cardiovascular: Regular heart rate. Abdomen: Soft and nontender. Extremities: Both legs are edematous. Neurologic: The patient is lethargic. He did not follow requests to move his extremities or open his mouth. There was no tremor. LAB AND X-RAY: Chest x-ray shows pulmonary edema and possible right lower lobe pneumonia. CBC shows a white count of 9080, hemoglobin 9.3, and platelet count 209,000. Blood gases show a pH of 7.43, PO2 of 50, pCO2 of 46. Creatinine is 0.9. GFR is greater than 60. ASSESSMENT AND PLAN: The patient may well have pneumonia. I plan to continue vancomycin and Zosyn. COMORBIDITIES: The patient has Down syndrome. He also has sleep apnea, gastroesophageal reflux disease, and seizure disorder. All of these factors could predispose the patient to pneumonia. The patient also has benign prostatic hypertrophy and chronic kidney disease. cc: Reginald Hanley MD
[2018-04-04] MEDS: MUCOMYST 20% INH SCH ×2 (08:00→19:17)
[2018-04-04] MEDS: LEXAPRO PO SCH (08:24)
[2018-04-04] MEDS: TYLENOL PO PRN (08:24)
[2018-04-04] MEDS: RISPERDAL PO SCH ×2 (08:25→20:25)
--- NOTE | 2018-04-04 09:27 | PROGRESS NOTE ---
DATE: 04/04/2018 SUBJECTIVE: The patient is nonverbal. The patient's oxygen needs are going up and down from Ventimask to BiPAP. Yesterday, he was requiring 70%-80% FiO2 on BiPAP, and now he is on non- rebreather mask. OBJECTIVE: Vital Signs: Temperature 98.6 degrees, heart rate 73, respiratory rate 16, blood pressure 114/45, O2 saturation 92% on 2 L nasal cannula. General: This is a chronically ill- looking, 58-year-old male with history of Down syndrome, lying in bed , in no acute distress. HEENT: Head is normocephalic and atraumatic. Neck: No JVD noted. No carotid bruits. No lymphadenopathy. No thyromegaly. Cardiovascular: S1 and S2 heard. Tachycardic. No murmurs, gallops, or rubs. Regular rate and rhythm. Respiratory: Coarse breath sounds still present in both pulmonary bases. The patient is not using any accessory muscles or having work of breathing. Abdomen: Soft. Nondistended. Nontender to palpation. Bowel sounds present. No organomegaly. Extremities: No clubbing, cyanosis, or edema. Peripheral pulses present in both legs. Neurological: The patient is awake today. He is nonverbal. He does not follow commands. He moves 4 extremities spontaneously. LABORATORY DATA: White cell count 9.08, hemoglobin 9.3, hematocrit 28.5, platelets 209,000. ABG shows pH 7.42, pCO2 46, PO2 50, with oxyhemoglobin of 89. BMP normal. ASSESSMENT AND PLAN: 1. Community-acquired pneumonia. The patient has right lower lobe pneumonia. The patient is on vancomycin and Zosyn. He is not spiking any fever. The only problem is that his oxygen needs are going up and down. The patient sometimes becomes very agitated. Today, he is more awake so he can take his medications by mouth. At this point, we are going to continue with antibiotic therapy directed by Dr. Reginald Hanley. Will continue also with DuoNeb every 4 hours scheduled and also Mucomyst twice daily. He is not requiring anymore vasopressors. Will continue with the same management. 2. Down syndrome. Aware. He has been agitated lastly so we are going to use some restraints. 3. Left femur fracture. Orthopedics has been consulted, but unfortunately, because of his current clinical situation, he is not able to undergo any surgery. We appreciate Orthopedics' input. DISPOSITION: Considering his oxygen needs are up and down, and he becomes sometimes agitated, I prefer to keep this patient one more day in the intensive care unit to see how he does. cc: Gino Rebolledo MD MTDD
--- NOTE | 2018-04-04 14:06 | ECHO REPORT ---
ORDER DATE: 04/04/2018 INDICATION: Evaluate heart. Patient with a history of Down syndrome. FINDINGS: 1. The right atrium appears normal in size at 3.7 cm. 2. Trace tricuspid regurgitation. RV systolic pressure of 26. 3. Likely normal RV size and systolic function on limited views of the right heart. This was a difficult study as the patient was uncooperative. 4. Trace pulmonic insufficiency. 5. Normal left atrial size with a dimension of 3.3 cm. 6. No mitral valve prolapse. No significant mitral regurgitation. 7. Normal LV size, end-diastolic dimension of 4.1. Normal wall thicknesses with a posterior and interventricular septal wall thickness of 0.9 cm each. Normal LV systolic function. Estimated ejection fraction of 70% with normal wall motion. No evidence of left ventricular hypertrophy. 8. The aortic valve opens well. There is mild insufficiency. No evidence of stenosis. 9. Aorta appears normal in visualized segments. 10. No pericardial effusion seen. cc: MD Evangelina Humphreys MD MTDD
[2018-04-04] MEDS: FLOMAX PO SCH (20:25)
[2018-04-04] MEDS: DESYREL PO SCH (20:25)
[2018-04-04] MEDS ORDERED: VANCOMYCIN 1,600 MG in NS 250 ML IV SCH (22:00)
[2018-04-05] MEDS: MORPHINE IV PRN (00:29)
[2018-04-05] MEDS: NS 1,000 ML IV SCH (00:30)
[2018-04-05] MEDS: ZOSYN 3.375 GM in NS 50 ML IV SCH ×4 (02:37→20:10)
[2018-04-05] MEDS: TYLENOL PO PRN ×2 (02:37→08:26)
[2018-04-05] MEDS: DEPACON 250 MG in NS 50 ML IV SCH ×2 (02:37→08:26)
[2018-04-05] MEDS: DUONEB (A & A) INH SCH ×6 (03:33→22:55)
[2018-04-05] MEDS: AZULFIDINE PO SCH ×3 (05:34→20:49)
[2018-04-05 05:43] LABS: BASO# 0.11 X1000 (0.0-0.2); BASO% 2.1 % (0.0-0.8); EOS# 0.09 X1000 (0.0-0.7); EOS% 1.7 % (0.0-10.0); HEMATOCRIT 26.3 % (42.0-52.0); HEMOGLOBIN 8.4 g/dL (14.0-18.0); IMM GRAN# 0.02 X1000 (0.0-0.04); IMM GRAN% 0.4 % (0.0-0.5); LYMPH# 1.29 X1000 (1.2-3.4); LYMPH% 24.7 % (20.5-51.1); MCH 33.2 PG (27-31); MCHC 31.9 g/dL (33-37); MONO# 0.69 X1000 (0.11-0.59); MONO% 13.2 % (1.7-9.3); MPV 9.5 FL (7.4-10.4); NEUT# 3.02 X1000 (1.4-6.5); NEUT% 57.9 % (42.2-75.2); PLT 232 X1000 (130-400); RBC 2.53 XMIL (4.7-6.1); RDW 12.2 % (11.5-14.5); WBC 5.22 X1000 (4.8-10.8)
[2018-04-05 05:58] LABS: AGAP 7; BUN 10 mg/dL (8-22); CALCIUM 8.1 mg/dL (8.8-10.2); CHLORIDE 105 mmol/L (98-107); COSMO 282; CREATININE 0.7 mg/dL (0.7-1.2); ESTIMATED GFR > 60; GLUCOSE 99 mg/dL (70-104); POTASSIUM 3.3 mmol/L (3.5-5.1); SODIUM 142 mmol/L (136-145); TCO2 30 mmol/L (25-35)
[2018-04-05 05:58] LABS: ALLEN TEST YES; BE 7.8 mmoll (-3.0-3.0); BLOOD TYPE ARTERIAL; O2(CT) 15.5 mL/dL (15.0-23.0); O2HB 95.7 % (95.0-99.0); PCO2(98.6) 46 mmHg (35-45); PO2(98.6) 91 mmHg (60-100); SAMPLE BLOOD; SAO2 97.5 % (95.0-100.0); THB 11.4 g/dL (11.5-17.4); pH(98.6) 7.46 (7.35-7.45)
[2018-04-05] MEDS: SYNTHROID IV SCH (06:00)
[2018-04-05 06:01] LABS: MODALITY BI PAP
[2018-04-05 07:25] LABS: BANDS 2 % (0-1); LYMPHS 16 % (21-51); SEGS 80 % (42-75)
--- NOTE | 2018-04-05 07:29 | Diag Imaging Result Doc PS360 ---
EXAM: CHEST-1 VIEW 04/05/2018 HISTORY: SOB TECHNIQUE: AP portable at 0513 COMMENT: There is ill-defined alveolar opacity in the right base. There is slight displacement of the mediastinum to the right. There is some irregular opacity in the medial portion of the left base. Compared to the previous study of 04/04/2018 the ill-defined opacity over the right lower lobe has improved. IMPRESSION: Improved pulmonary edema and/or pneumonia. Electronically signed by Markel Duval 04/05/2018 7:27 AM
[2018-04-05] MEDS: MUCOMYST 20% INH SCH ×2 (08:10→19:10)
[2018-04-05] MEDS: RISPERDAL PO SCH ×2 (08:26→20:51)
[2018-04-05] MEDS: LEXAPRO PO SCH (08:26)
--- NOTE | 2018-04-05 08:52 | INFECTIOUS DISEASE PROGRESS NO ---
DATE: 04/05/2018 PRESENT ILLNESS: The patient has a bibasilar pneumonia which has improved slightly. MEDICATIONS: This is the third day of treatment with the combination of vancomycin and Zosyn. PHYSICAL EXAMINATION: Vital Signs: Maximum temperature was 100 degrees, pulse is 87, respirations 14, blood pressure 140/68. General: This is an ill-appearing, middle-aged male. He has Down syndrome. He is in no acute distress. Head, Eyes, Ears, Nose, and Throat: No drainage was noted from his eyes or ears. Neck: No stiffness. Lungs: Clear to auscultation. Cardiovascular: Regular heart rate. Abdomen: Soft and not tender. Neurologic: The left leg has a tremor. The patient has not had a seizure. He is still lethargic. He did not follow requests to move his extremities. As mentioned above, the patient did have a tremor in the left leg. LAB AND X-RAY: Chest x-ray shows improvement of the bibasilar infiltrates. Echocardiogram shows no vegetations. Creatinine is 0.7. GFR is greater than 60. The patient's blood gases show a pH of 7.46, a PO2 of 91, and a pCO2 of 46. CBC shows a white count of 5220, hemoglobin 8.4, and platelet count 232,000. ASSESSMENT AND PLAN: The patient has pneumonia. For now, I am going to continue his current antibiotics. COMORBIDITIES: The patient has Down syndrome, sleep apnea, gastroesophageal reflux disease, and seizure disorder. The patient also has benign prostatic hypertrophy and chronic kidney disease. cc: Reginald Hanley MD
[2018-04-05] MEDS: VANCOMYCIN 1,600 MG in NS 250 ML IV SCH ×2 (10:16→21:58)
[2018-04-05] MEDS: POTASSIUM CHLORIDE 20% LIQUID PO ONE ×2 (11:08→13:25)
--- NOTE | 2018-04-05 11:22 | PROGRESS NOTE ---
DATE: 04/05/2018 SUBJECTIVE: The patient is nonverbal as per nursing staff. Oxygen need continues to go up and down. He sometimes requires Ventimask with the oxygen then he can need BiPAP and now he is requiring Ventimask at 50%. OBJECTIVE: Vital signs: Temperature 100.6, heart rate 81, respiratory rate 12, blood pressure 143/41, O2 sat 96% on Venturi mask 40% during examination. General: This is a chronically ill- looking 58-year-old male with a history of Down syndrome lying in bed in no acute distress. HEENT: Head is normocephalic with mucous membranes very dry. Neck: No JVD noted, no carotid bruit, no lymphadenopathy. Cardiovascular: S1, S2 heard. Tachycardic but no murmurs, gallops, or rubs noted. Respiratory: Coarse breath sounds still present in both pulmonary bases. The patient is not using any accessory muscles or having work of breathing. Extremities: No clubbing, cyanosis, or edema. Peripheral pulses present in both legs. Neurological: The patient is awake, nonverbal, does not follow commands. LABORATORY DATA: White cell count 5.32, hemoglobin 8.4, hematocrit 26.3, platelets 232. ABG shows pH 7.43, pCO2 of 46, pO2 of 91. BMP shows potassium 3.3. ASSESSMENT AND PLAN: 1. Acute respiratory failure secondary to community-acquired pneumonia. The patient has right lower lobe pneumonia, currently is on vancomycin and Zosyn. He continues to spike fever. Antibiotics under the direction of Dr. Hanley. Considering his fluctuating oxygen needs, I prefer to keep him one more day in the hospital. 2. Down syndrome. We have continued with home medications. 3. Left femur fracture. At this point, of course, he is not stable, so he cannot undergo any procedures at this time. 4. Disposition: Will continue to monitor this patient closely in ICU. cc: Gino Rebolledo MD
[2018-04-05] MEDS: ATIVAN IV PRN ×2 (13:20→15:19)
[2018-04-05] MEDS: POTASSIUM CHLORIDE 20 MEQ/SWI 20 MEQ/100 ML IVPB IV SCH ×2 (14:09→16:09)
[2018-04-05] MEDS: LEVOPHED 8 MG in D5 1/2 NS 250 ML IV SCH (14:09)
[2018-04-05] MEDS: DEPACON 500 MG in NS 50 ML IV SCH ×2 (15:01→21:57)
--- NOTE | 2018-04-05 15:26 | PROGRESS NOTE ---
DATE: 04/05/2018 SUBJECTIVE DATA: The patient is nonverbal per nursing staff. The patient has continuously needed a Ventimask at 50% or a BiPAP to breathe efficiently. OBJECTIVE DATA: The patient is slightly lethargic at this time. The left lower extremity is shortened and externally rotated. Vital signs: Pulse rate 64, respiratory rate 13, blood pressure 102/47, O2 saturation 99% on Venturi mask 50%. Last temperature was 100.6 degrees. General: This is an acutely ill looking 58-year-old male with a history of Down syndrome that lays in the bed with no acute distress. HEENT: Head is normocephalic. Mucous membranes are dry. Neck: There is no JVD. Neck is supple. Cardiovascular: S1, S2. Respiratory: There is equal chest expansion. Extremities: There is no clubbing or cyanosis. There is good peripheral pulses in both legs. Neurological: The patient is awake but lethargic, he is nonverbal, and he does not follow commands at this time. LABORATORY DATA: White blood cell 5.22, hemoglobin 8.4, hematocrit 26.3, platelets 232,000. Sodium 142, potassium 3.3, chloride 105, BUN 10, creatinine 0.7. AST was slightly elevated at 59. ASSESSMENT AND PLAN: 1. Acute respiratory failure secondary to pneumonia. Hospitalists are handling this at this time. He continues to spike fever. We will continue antibiotics per hospitalist. 2. Down syndrome. We have continued home medications. 3. Seizures. They have continued seizure medication. 4. Left intertrochanteric hip fracture. At this point with a hip fracture he is not stable for surgery. We ask that we please be consulted again when the patient is stable. We will monitor him periodically throughout the hospital stay until he needs surgery again. Dictated by PUNEET Taylor for Shravan Root MD cc: PUNEET Taylor MD
--- NOTE | 2018-04-05 16:21 | CONSULTATION ---
DATE OF CONSULTATION: 04/05/2018 HISTORY OF PRESENT ILLNESS: This is a 58-year-old male with Down syndrome and epilepsy. He resides at a group facility. He was admitted 5 days ago with a left hip fracture. He was found by his caretakers in the morning and was having pain in the hip. They are unsure how it may have happened. There was no report of witnessed seizure. He was admitted and the plan is for a surgical procedure to the left hip. He began to have fevers and has been diagnosed with pneumonia that is being treated with antibiotics. About 3 days into his stay he was transferred to the ICU due to fevers, some shaking activity that did not appear to be related to a seizure but more related to a fever, and also desaturations into the 80s. Since being in the ICU his oxygen needs have been waxing and waning. Today the nurses went to observe him, they opened his eyes and realized that his eyes were in the back of his head. He had some shaking of his left arm. There was concern for seizure activity and he was given 2 mg of IV lorazepam which abated the symptoms. The patient was seen in our office by the nurse practitioner just last month. His medication list from his facility indicates that he is taking divalproex ER 500 mg tablets, SIG 4 p.o. at bedtime (2,000 mg daily dose). At that office visit the staff reported that his last seizure was 2.5 weeks prior to that while he was sick with a sore throat and fever. Prior to that event his last seizure was several years ago. I reviewed his MAR here and it looks as though he was started initially on divalproex ER at 1000mg total daily dose on 04/01/2018 at 2100. This was switched to Depacon 250 mg IV every 6 hours on . PAST MEDICAL HISTORY: Includes: Down syndrome, epilepsy, sleep apnea, GERD, chronic kidney disease, and hypothyroidism. FAMILY HISTORY: Noncontributory. SOCIAL HISTORY: He lives in a [facility]. No alcohol, tobacco, or illicit drugs. ALLERGIES: Listed to metoclopramide. HOME MEDICATIONS: Reviewed and notably the antiepileptic medication is divalproex ER 500 mg tablets, SIG 4 tablets p.o. nightly at bedtime (2,000 mg daily dose). REVIEW OF SYSTEMS: Unobtainable. PHYSICAL EXAMINATION: VITAL SIGNS: Last temperature recorded at 100.6. Blood pressure 90s to 102/ 40s. Pulse 60s. Respirations 13. Oxygen saturation 99% on mask. Mr. Booker is supine in bed with eyes closed. He is sedate. He received 2 mg of lorazepam shortly before my encounter. He is in no acute distress. He grimaces and moaned a little to noxious stimuli but does not wake up fully and cooperate with the exam. He does not answer questions. No commands. Pupils are equal, round, miotic 2mm and reactive OU. Gaze is a bit dysconjugate. There is horizontal eye movement with passive head turning. Corneals are present bilaterally. Face appears symmetric with equal grimace. Tone appears to be symmetric in the limbs. There is no increased tone. There is no adventitious movements. He grimaces and withdraws both upper extremities to noxious stimuli. He does the same but to a lesser degree to the lower extremities with noxious stimuli. The left lower extremity is rotated out laterally following the hip fracture. Reflexes: Absent ankle jerks. Plantar response is downgoing. 1+ at the biceps bilaterally. Trace left wrist; could not evaluate the right wrist. Did not test his gait. DIAGNOSTICS: Head CT on admission showed moderate diffuse generalized cerebral atrophy but no acute findings. Normal white count today. Hemoglobin and hematocrit 8.4 and 26.3. Platelets normal. Normal sodium, BUN, and creatinine. AST was 59 and ALT 33. Blood sugars 80s to 90s recently. ASSESSMENT: 1. Epilepsy with possible breakthrough seizures in the setting of reduced antiepileptic dose. 2. Pneumonia and fevers. This may also lower his seizure threshold. 3. Left hip fracture. 4. Down syndrome. PLAN: Increase Depacon to a total daily dosage of 2,000 mg to match his home dosage. His dose is due now so I would give him the higher dose. Continue lorazepam p.r.n. for seizure activity. Continue treating his other underlying medication conditions. If he does not begin to wake up then we may need to perform an EEG. Seizure precautions. Thank you for the consultation. ADDENDUM: Called to the patient's room about 10 minutes after initial encounter due to concern for seizure like activity. The patient had his eyes closed. There was irregular, waxing/waning shaking mostly involving the left upper extremity, but at times both upper extremities. With passive opening of the eyes, I noted they were roving back in forth. The pupils were dilated to about 4-5mm OU with subtle reactivity to light. 1mg LZP was given IV and the activity abated. Cannot definitely rule out seizure event. If he doesn't improve, will need to consider loading dose depacon in addition to his recently adjusted maintenance dose and EEG. cc: Nina Lawson MD MTDD
[2018-04-05] MEDS: DESYREL PO SCH (20:50)
[2018-04-05] MEDS: FLOMAX PO SCH (20:50)
[2018-04-06] MEDS: ZOSYN 3.375 GM in NS 50 ML IV SCH ×4 (02:28→19:32)
[2018-04-06] MEDS: DEPACON 500 MG in NS 50 ML IV SCH ×4 (02:30→21:36)
[2018-04-06] MEDS: DUONEB (A & A) INH SCH ×6 (03:00→23:09)
[2018-04-06] MEDS: AZULFIDINE PO SCH ×3 (06:00→21:36)
[2018-04-06 06:10] LABS: ALLEN TEST YES; BE 9.2 mmoll (-3.0-3.0); BLOOD TYPE ARTERIAL; HCO3-(ACT) 32.1 mmoll (20.0-26.0); METHB 0.5 % (0.0-1.5); MODALITY VENTIMASK; O2(CT) 8.1 mL/dL (15.0-23.0); PCO2(98.6) 37 mmHg (35-45); PO2(98.6) 146 mmHg (60-100); SAMPLE BLOOD; SAO2 98.2 % (95.0-100.0); THB 5.7 g/dL (11.5-17.4); pH(98.6) 7.55 (7.35-7.45)
[2018-04-06 06:39] LABS: BASO# 0.16 X1000 (0.0-0.2); BASO% 2.9 % (0.0-0.8); EOS# 0.16 X1000 (0.0-0.7); EOS% 2.9 % (0.0-10.0); HEMATOCRIT 29.5 % (42.0-52.0); HEMOGLOBIN 9.4 g/dL (14.0-18.0); IMM GRAN# 0.04 X1000 (0.0-0.04); IMM GRAN% 0.7 % (0.0-0.5); LYMPH# 1.38 X1000 (1.2-3.4); LYMPH% 25.4 % (20.5-51.1); MCH 33.5 PG (27-31); MCHC 31.9 g/dL (33-37); MONO# 0.67 X1000 (0.11-0.59); MONO% 12.3 % (1.7-9.3); MPV 9.6 FL (7.4-10.4); NEUT# 3.02 X1000 (1.4-6.5); NEUT% 55.8 % (42.2-75.2); PLT 256 X1000 (130-400); RBC 2.81 XMIL (4.7-6.1); RDW 12.2 % (11.5-14.5); WBC 5.43 X1000 (4.8-10.8)
[2018-04-06] MEDS: SYNTHROID IV SCH (06:46)
[2018-04-06 07:05] LABS: AGAP 7; BUN 10 mg/dL (8-22); CALCIUM 8.7 mg/dL (8.8-10.2); CHLORIDE 105 mmol/L (98-107); COSMO 284; CREATININE 0.8 mg/dL (0.7-1.2); ESTIMATED GFR > 60; GLUCOSE 94 mg/dL (70-104); POTASSIUM 4.1 mmol/L (3.5-5.1); SODIUM 143 mmol/L (136-145); TCO2 31 mmol/L (25-35)
--- NOTE | 2018-04-06 07:39 | Diag Imaging Result Doc PS360 ---
EXAM: CHEST-1 VIEW INDICATION: SOB TECHNIQUE: One view COMPARISON: 04/05/2018 FINDINGS: There has been interval modest worsening of the interstitial and airspace consolidations bilaterally with a basilar predominance and worst on the right. No other new consolidations are appreciated. Cardiac silhouette is stable. IMPRESSION: Interval worsening of bilateral infiltrates. Electronically signed by Shravan Arias 04/06/2018 7:36 AM
[2018-04-06] MEDS: MUCOMYST 20% INH SCH ×2 (08:02→19:48)
--- NOTE | 2018-04-06 08:19 | PROGRESS NOTE ---
DATE: 04/06/2018 SUBJECTIVE: The patient is nonverbal. As per the nursing staff, he had only 1 episode of seizure last afternoon. His oxygen needs are still going up and down. He sometimes required a Ventimask and sometimes needs a BiPAP or non-rebreather. At this time, he is on Ventimask. No other issues noted. He is awake and alert. OBJECTIVE: Vital Signs: Temperature 98.9 degrees, heart rate 90. Respiratory 22, blood pressure 126/67. O2 saturation 93% on Ventimask at 50%. General Examination: This is a chronically ill- looking, 58-year-old male with history of Down syndrome, lying in bed in no acute distress. HEENT: Head is normocephalic with mucous membranes very dry. Neck: No JVD noted. No carotid bruits. No lymphadenopathy. No thyromegaly. Cardiovascular: S1, S2 heard. Tachycardic but no murmurs, gallops, or rubs noted. Respiratory: Coarse breath sounds still present in both pulmonary bases. Patient is not using any accessory muscles or having work of breathing. Abdomen is a little bit distended but nontender to palpation. No signs of peritoneal irritation. No splenomegaly noted. Extremities: No clubbing, cyanosis, or edema. Peripheral pulses present in both legs. Neurologic: Patient is awake but nonverbal. Does not follow commands. LABORATORY DATA: White cell count 5.43, hemoglobin 9.4, hematocrit 29.5, platelets 256,000 with pH 7.55 with pCO2 of 37, PO2 of 146. ASSESSMENT AND PLAN: 1. Acute respiratory failure secondary to community-acquired pneumonia. The patient has a right lower lobe pneumonia. Currently, patient is on vancomycin and Zosyn. He is not spiking any fever anymore. Dr. Hanley from Infectious Disease is following this patient and directing antibiotics. The reason why this patient is here in the Intensive Care Unit is because of his fluctuating oxygen needs. As we mentioned before, sometimes he is requiring Ventimask and nasal cannula and then he requires nonrebreather mask to maintain O2 saturation above 90. At this point, I prefer to keep this patient in the ICU unit at least to see that he is stable 24 hours with the same oxygen needs. 2. Down syndrome. We have continued with home medications. 3. Seizure disorder. Patient has been evaluated by Dr. Lawson from neurology. His help appreciated. The patient is on Ativan p.r.n. and also Depacon IV. We will continue with the same medications. 4. Left femur fracture. Of course, at this point, patient is unstable to undergo any surgery. Orthopedics has been consulted. 5. Hypertension. Patient's blood pressure started going down. I am not quite sure if it was really septic shock, but his blood pressure now is much better. He is not on vasopressors anymore. We will continue to monitor this patient. 6. Hypokalemia, resolved. DISPOSITION: We will continue to monitor this patient in the intensive care unit and, if tomorrow his oxygen needs are more stable, then will transfer to [facility]. cc: Gino Rebolledo MD MTDD
[2018-04-06] MEDS: RISPERDAL PO SCH ×2 (08:23→21:36)
[2018-04-06] MEDS: LEXAPRO PO SCH (08:24)
[2018-04-06] MEDS: VANCOMYCIN 1,600 MG in NS 250 ML IV SCH (10:32)
--- NOTE | 2018-04-06 12:24 | INFECTIOUS DISEASE PROGRESS NO ---
DATE: 04/06/2018 PRESENT ILLNESS: The patient has bilateral pulmonary infiltrates. I think it could well represent pneumonia. It may also represent, however, pulmonary venous congestion. MEDICATIONS: The patient now is on the 4th day of treatment with the combination of vancomycin and Zosyn. PHYSICAL EXAMINATION: Vital Signs: Temperature is 97.3, pulse 74, respirations 14, blood pressure 159/69. Generally, this is an ill-appearing, middle-aged male. He is in no acute distress. He does have Down syndrome. Head/eyes/ears/nose/throat: No drainage noted from his nose or ears. Neck: No meningismus. Lungs clear to auscultation. Cardiovascular: Regular heart rate. Abdomen soft and nontender. Neurologic: The patient is sleeping. He does not have a tremor. He did not respond to verbal stimuli. LABORATORY DATA AND X-RAY: Chest x-ray shows worsening of the interstitial and airspace consolidations bilaterally. ASSESSMENT AND PLAN: I think the patient has pneumonia; however, there could be a component of pulmonary venous congestion. For now, I am going to continue the patient's current antibiotics, and I have ordered for a procalcitonin level to be done. COMORBIDITIES: Down's syndrome, sleep apnea, gastroesophageal reflux disease, and seizure disorder. The patient also has benign prostatic hypertrophy and chronic kidney disease. cc: Reginald Hanley MD
--- NOTE | 2018-04-06 13:13 | PROGRESS NOTE ---
DATE: 04/06/2018 The patient is in ICU-7. Mr. Booker is well known to our office. He had possible recent seizure associated with reduction in his baseline divalproex dose. Dr. Lawson saw him earlier and returned the dose to 2000 mg daily. He has tolerated that dose group home. He had reported single isolated possible seizure 4 to 6 weeks ago associated with URI syndrome. Otherwise, he has been seizure-free with divalproex ER 2000 mg daily for several years. 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 [facility] is a [facility] resident. He presented this time with hip fracture. He had some shaking earlier today but reported that was due to feeling chilled. He has not had clinically apparent seizure on current regimen. I would continue current valproic acid 500 mg IV every 6 hours and return to his p.o. extended release divalproex 500 mg 4 tablets daily when he is swallowing consistently. Thanks for asking Neurology to see Mr. Booker. cc: MD HUMBERTO Solis III
[2018-04-06] MEDS: DESYREL PO SCH (21:36)
[2018-04-06] MEDS: FLOMAX PO SCH (21:36)
[2018-04-07] MEDS: ZOSYN 3.375 GM in NS 50 ML IV SCH ×4 (02:23→20:32)
[2018-04-07] MEDS: DEPACON 500 MG in NS 50 ML IV SCH ×4 (02:23→20:33)
[2018-04-07] MEDS: DUONEB (A & A) INH SCH ×6 (03:43→23:10)
[2018-04-07] MEDS: AZULFIDINE PO SCH ×3 (04:53→20:33)
[2018-04-07 05:04] LABS: ALLEN TEST YES; BE 9.4 mmoll (-3.0-3.0); BLOOD TYPE ARTERIAL; HCO3-(ACT) 32.2 mmoll (20.0-26.0); PCO2(98.6) 46 mmHg (35-45); PO2(98.6) 70 mmHg (60-100); SAMPLE BLOOD; pH(98.6) 7.48 (7.35-7.45)
[2018-04-07 05:06] LABS: MODALITY NRB
[2018-04-07 05:07] LABS: BASO% 1.8 % (0.0-0.8); EOS% 1.8 % (0.0-10.0); HEMATOCRIT 30.3 % (42.0-52.0); HEMOGLOBIN 9.8 g/dL (14.0-18.0); IMM GRAN# 0.06 X1000 (0.0-0.04); IMM GRAN% 1.1 % (0.0-0.5); LYMPH# 1.61 X1000 (1.2-3.4); LYMPH% 29.7 % (20.5-51.1); MCH 33.6 PG (27-31); MCHC 32.3 g/dL (33-37); MCV 103.8 FL (81-99); MONO# 0.75 X1000 (0.11-0.59); MONO% 13.8 % (1.7-9.3); MPV 9.4 FL (7.4-10.4); NEUT% 51.8 % (42.2-75.2); PLT 258 X1000 (130-400); RBC 2.92 XMIL (4.7-6.1); RDW 12.4 % (11.5-14.5); WBC 5.42 X1000 (4.8-10.8)
[2018-04-07 05:24] LABS: AGAP 10; BUN 12 mg/dL (8-22); CALCIUM 8.7 mg/dL (8.8-10.2); CHLORIDE 101 mmol/L (98-107); COSMO 280; CREATININE 0.8 mg/dL (0.7-1.2); ESTIMATED GFR > 60; GLUCOSE 88 mg/dL (70-104); POTASSIUM 3.8 mmol/L (3.5-5.1); SODIUM 141 mmol/L (136-145); TCO2 30 mmol/L (25-35)
[2018-04-07] MEDS: SYNTHROID IV SCH (06:20)
--- NOTE | 2018-04-07 07:15 | Diag Imaging Result Doc PS360 ---
EXAM: CHEST-1 VIEW 04/07/2018 HISTORY: SOB TECHNIQUE: AP portable at 0514 COMMENT: There is alveolar opacity bilaterally particularly in the right lower lobe. The inspiration is slightly less optimal than on 04/06/2018 otherwise there has been no significant change. IMPRESSION: Pulmonary edema and/or pneumonia. Electronically signed by Markel Duval 04/07/2018 7:13 AM
[2018-04-07] MEDS: MUCOMYST 20% INH SCH ×2 (08:01→19:22)
[2018-04-07] MEDS: RISPERDAL PO SCH ×2 (08:39→20:33)
[2018-04-07] MEDS: LEXAPRO PO SCH (08:40)
[2018-04-07] MEDS: MORPHINE IV PRN (10:51)
--- NOTE | 2018-04-07 12:00 | PROGRESS NOTE ---
DATE: 04/07/2018 Mr. Booker has not had any clinically apparent seizure. He appears to be tolerating his current valproic acid dose. I do not have any new suggestion from neurology standpoint today. We can consider returning to oral divalproex when he is swallowing consistently. Thanks for asking Neurology to see Mr. Booker. cc: Randell Ortega III, MD [facility]
--- NOTE | 2018-04-07 14:24 | Diag Imaging Result Doc PS360 ---
EXAM: CT THORAX W/O CONTRAST INDICATION: SOB TECHNIQUE: This exam was performed using automated exposure control, adjustment of mA or kV according to patient size, and/or use of iterative reconstruction technique. COMPARISON: 04/01/2018 FINDINGS: There has been interval development of a very small right pleural effusion and trace pleural fluid on the left. There has been marked worsening of the infiltrates at at the mid and lower lung zones bilaterally. This probably represents a combination of pulmonary edema and pneumonia. There is also a component of atelectasis at both lung bases. There is no pneumothorax. The heart appears borderline to mildly prominent but is essentially stable. There are a few calcified mediastinal lymph nodes indicating prior granulomatous. 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 Limited views of the upper abdomen are essentially unremarkable. IMPRESSION: 1.Marked worsening of infiltrates at the mid and lower lung zones bilaterally that probably represents a combination of pneumonia and pulmonary edema with a component of atelectasis. 2.Development of a small right pleural effusion and trace pleural fluid on the left. Electronically signed by Shravan Arias 04/07/2018 2:22 PM
[2018-04-07] MEDS ORDERED: LASIX IV ONE (14:59)
--- NOTE | 2018-04-07 15:26 | PROGRESS NOTE ---
DATE: 04/07/2018 SUBJECTIVE: Patient reportedly slightly more cooperative with nursing this morning, but largely nonverbal at the time of my exam. Continues to have high oxygen requirements, currently on non- rebreather. Blood pressure remains marginal. No other acute events overnight. REVIEW OF SYSTEMS: Unable to obtain secondary to patient's mental status. LABORATORY DATA: White count 5.4, hemoglobin 9.8, hematocrit 30.3, platelets 258,000. ABG with pH 7.48, pCO2 46, PO2 70 on a non-rebreather. Basic metabolic panel unremarkable. DIAGNOSTIC STUDIES: Chest CT showing worsening of infiltrates in the mid and lower lung zones bilaterally, favored to represent a combination of pneumonia and pulmonary edema. PHYSICAL EXAMINATION: Vital Signs: T-max 98.9 degrees, pulse 66, respirations 16, blood pressure 95/36, O2 saturation 100% on non-rebreather. General: No acute distress. Vitals as above. Currently in restraints. HEENT: Normocephalic. Neck: No JVD. No cervical adenopathy. Cardiovascular: Regular rate and rhythm. No murmurs, rubs, or gallops noted. Pulmonary: Scattered rhonchi throughout. No accessory muscle use or increased work of breathing. Abdomen: Soft, nontender, nondistended. Bowel sounds positive. Extremities: Peripheral pulses intact. No clubbing, cyanosis or edema. Neurologic: Exam limited by patient mental status and lack of cooperation. Moves all extremities spontaneously. No clear deficits. Psychiatric: Awake, alert, but nonverbal and not cooperative with commands at the time of my exam. ASSESSMENT AND PLAN: 1. Acute hypoxic respiratory failure: Originally thought to be due to community-acquired pneumonia and possibly mucous plug based on previous imaging, but CT today showing possible component of acute pulmonary edema. BNP on admission near normal, but will repeat. Will give a dose of Lasix and monitor. Pulmonology following. Discussed with Pulmonology prior to CT results and it was felt the patient's prognosis is somewhat guarded. Continue antibiotics with Zosyn and vancomycin. 2. Down syndrome. Continue home medications. 3. Seizure disorder. Continue q.6 hour valproate until patient able to take p.o. well enough to return to his extended release Depakote. Neurology following. 4. Hypertension. Patient with blood pressure normotensive to mildly hypertensive. Holding blood pressure medicines aside from Lasix as above. 5. Left femur fracture. The patient remains too unstable to go to surgery. Orthopedics evaluated the patient. Will re-consult Orthopedics if/when patient stable for surgery. 6. Hypokalemia, resolved. 7. Anemia, stable. Likely anemia of chronic disease. Continue to monitor. 8. Deep vein thrombosis prophylaxis. Sequential compression devices.
[2018-04-07] MEDS: VANCOMYCIN 1,600 MG in NS 250 ML IV SCH (16:41)
[2018-04-07] MEDS: DESYREL PO SCH (20:33)
[2018-04-08] MEDS ORDERED: DOPAMINE 800 MG/D5W 800 MG/500 ML IV.SOLN IV SCH (00:30)
[2018-04-08] MEDS: LEVOPHED 8 MG in D5 1/2 NS 250 ML IV SCH ×2 (01:32→15:05)
[2018-04-08] MEDS: ZOSYN 3.375 GM in NS 50 ML IV SCH ×3 (02:00→14:45)
[2018-04-08] MEDS: DEPACON 500 MG in NS 50 ML IV SCH ×4 (03:13→21:07)
[2018-04-08] MEDS: DUONEB (A & A) INH SCH ×6 (03:24→23:13)
[2018-04-08 05:06] LABS: ALLEN TEST YES; BE 12.9 mmoll (-3.0-3.0); BLOOD TYPE ARTERIAL; METHB 0.5 % (0.0-1.5); O2(CT) 15.2 mL/dL (15.0-23.0); O2HB 96.3 % (95.0-99.0); PCO2(98.6) 47 mmHg (35-45); PO2(98.6) 95 mmHg (60-100); SAMPLE BLOOD; SAO2 97.7 % (95.0-100.0); THB 11.1 g/dL (11.5-17.4); pH(98.6) 7.51 (7.35-7.45)
[2018-04-08 05:07] LABS: MODALITY NRB
[2018-04-08] MEDS: AZULFIDINE PO SCH ×3 (05:19→21:08)
--- NOTE | 2018-04-08 05:57 | INFECTIOUS DISEASE PROGRESS NO ---
DATE: 04/07/2018 PRESENT ILLNESS: The patient has a bilateral pneumonia and there may well be a component of pulmonary venous congestion also. The patient also had a urinary tract infection but this has cleared. MEDICATIONS: This is the 5th day of treatment with vancomycin and Zosyn. PHYSICAL EXAMINATION: Vital Signs: Temperature is 98.4 degrees, pulse 75, respirations 14, blood pressure 105/41. General: This is a ill-appearing middle-aged male. He is in no acute distress. Head/eyes/ears/nose/throat: He does not have any drainage from his nose or ears. He does have Downs syndrome. Neck: No stiffness. Lungs: Clear to auscultation. Cardiovascular: The patient's heart rate is regular. Abdomen: Soft and nontender. Neurologic: The patient remains lethargic. He is not responding to verbal stimuli. He does not have a tremor. LABS AND RADIOLOGY: The patient's CBC shows a white count of 5420, hemoglobin 9.8, and platelet count 258,000. Blood gases show a pH of 7.48, a pO2 of 70, pCO2 of 46. Creatinine is 0.8. GFR is greater than 60. Procalcitonin is 0.3 which means that pneumonia is likely. Blood and urine cultures are negative. CT scan of the chest shows worsening bilateral infiltrates and that may well be due to a combination of pneumonia and pulmonary edema. ASSESSMENT AND PLAN: I plan to continue with the patient's current antibiotics. I think the patient could well have a combination of pneumonia and pulmonary venous congestion. Dr. Ceballos is going to be trying the patient on Lasix. COMORBIDITIES: He has Down syndrome, sleep apnea, gastroesophageal reflux disease, and a seizure disorder. The patient also has benign prostatic hypertrophy. cc: Reginald Hanley MD
[2018-04-08 05:59] LABS: BASO% 1.2 % (0.0-0.8); EOS# 0.18 X1000 (0.0-0.7); EOS% 2.2 % (0.0-10.0); HEMATOCRIT 33.7 % (42.0-52.0); HEMOGLOBIN 10.7 g/dL (14.0-18.0); IMM GRAN# 0.08 X1000 (0.0-0.04); LYMPH# 1.86 X1000 (1.2-3.4); MCHC 31.8 g/dL (33-37); MONO# 1.25 X1000 (0.11-0.59); MONO% 15.5 % (1.7-9.3); MPV 9.5 FL (7.4-10.4); NEUT# 4.61 X1000 (1.4-6.5); NEUT% 57.1 % (42.2-75.2); PLT 342 X1000 (130-400); RBC 3.24 XMIL (4.7-6.1); RDW 12.5 % (11.5-14.5); WBC 8.08 X1000 (4.8-10.8)
[2018-04-08] MEDS: SYNTHROID IV SCH (06:01)
[2018-04-08 06:23] LABS: AGAP 11; BUN 17 mg/dL (8-22); CALCIUM 8.5 mg/dL (8.8-10.2); CHLORIDE 97 mmol/L (98-107); COSMO 282; ESTIMATED GFR > 60; GLUCOSE 146 mg/dL (70-104); POTASSIUM 3.8 mmol/L (3.5-5.1); SODIUM 139 mmol/L (136-145); TCO2 31 mmol/L (25-35)
[2018-04-08 06:35] LABS: EOS 2 % (1-10); LYMPHS 24 % (21-51); MONO 13 % (1-9); SEGS 60 % (42-75)
--- NOTE | 2018-04-08 06:39 | Diag Imaging Result Doc PS360 ---
EXAM: CHEST-1 VIEW HISTORY: SOB TECHNIQUE: Portable chest single view COMPARISON: 04/07/2018 FINDINGS: The lungs are well expanded. There are dense infiltrates in the lower right lung. These are more prominent than on the prior study. There are small infiltrates in the left lung base. The heart is mildly prominent. There are small pleural effusions. IMPRESSION: Mild interval worsening. Electronically signed by Steve Lemus 04/08/2018 6:36 AM
[2018-04-08] MEDS: MUCOMYST 20% INH SCH ×2 (07:59→19:23)
[2018-04-08] MEDS: LEXAPRO PO SCH (08:07)
[2018-04-08] MEDS: RISPERDAL PO SCH ×2 (08:07→21:08)
[2018-04-08] MEDS: VANCOMYCIN 1,600 MG in NS 250 ML IV SCH (10:57)
[2018-04-08] MEDS: MORPHINE IV PRN ×3 (12:17→22:06)
[2018-04-08] MEDS ORDERED: LASIX IV ONE (12:30)
--- NOTE | 2018-04-08 15:48 | PULMONOLOGY PROGRESS NOTE ---
DATE: 04/08/2018 SUBJECTIVE: The patient is laying in his bed with a non-rebreather. He appears comfortable. He has no increased work of breathing. He will not respond to voice. He does respond marginally to painful stimuli. OBJECTIVE: Vital Signs: BP 114/52, heart rate 80, respiratory rate 25, oxygen saturation 91% on non-rebreather. HEENT: Pupils are equal and reactive. Oropharynx appears dry. Neck: Supple. Chest: Reveals shallow breath sounds bilaterally. Cardiac exam: S1, S2. Abdomen: Soft without hepatosplenomegaly. Extremities: Reveal trace to 1+ edema. LABORATORIES: Arterial blood gas reveals pH 7.51, pCO2 of 47, PO2 of 95. White blood count 8.08, hemoglobin 10.7, platelet count 342. Arterial blood gas: A pH of 7.51, pCO2 of 47, PO2 of 95. Chest x-ray reveals dense bibasilar infiltrates with mild worsening. IMPRESSION: This 58-year-old patient with Down syndrome, pneumonia, hypoxemic respiratory failure, seizure disorder and gastroesophageal reflux disease with acute hypoxemic and a component of chronic hypercapnic respiratory failure. RECOMMENDATIONS: 1. Continue antibiotics per Infectious Disease. 2. Continue bronchial hygiene. 3. Continue oxygen for hypoxemic respiratory failure. 4. Overall prognosis is poor. Agree with current resuscitation orders to allow patient to have a natural if he does not do well. cc: Dread Priest MD
--- NOTE | 2018-04-08 16:01 | PROGRESS NOTE ---
DATE: 04/08/2018 INTERVAL HISTORY: The patient remains nonverbal. Still requiring nonrebreather with little progress. Remains on pressors with norepinephrine. Long discussion with the patient's sister who is the patient's next of kin and later with both the sister and sister's son. Discussion regarding current situation, overall poor prognosis and lack of significant progress thus far. After significant discussion, they did elect to make him DNR and DNI. If the patient shows little progress over the weekend, they will consider making him comfort care on Wednesday or Wednesday. REVIEW OF SYSTEMS: Unable to obtain secondary to the patient's mental status. DIAGNOSTIC DATA: White count is 8.0, hemoglobin 10.7, hematocrit 33.7, platelets 342. ABG with pH 9of 7.5, pCO2 of 47, pO2 of 95, saturation 97% on 100% nonrebreather. Basic metabolic panel essentially unremarkable. BNP is 656. IMAGING: Chest x-ray with dense infiltrates in the lower right lung, slightly more prominent than on previous and stable small infiltrates at the left lung base. OBJECTIVE: Vital signs: T-max is 98.7, pulse 94, respirations 19, blood pressure 100/44 on Levophed, O2 saturation is 93% on nonrebreather. General: No acute distress. Vitals as above. HEENT is atraumatic and normocephalic. Moist mucous membranes. No cervical lymphadenopathy. Cardiovascular: Regular rate and rhythm. No murmurs, rubs or gallops. Pulmonary: Diffuse rhonchi. Abdomen: Soft, nontender, and nondistended. Bowel sounds positive. Extremities: Peripheral pulses intact. No cyanosis, clubbing or edema. Neurologic: Limited by the patient's mental status. Will occasionally move head, eyes, or extremities spontaneously, but nothing purposeful today. No obvious focal deficits. Psychiatric: The patient is asleep but arousable. Withdraws to noxious stimuli. Nonverbal, noncooperative. ASSESSMENT AND PLAN: 1. Acute hypoxic respiratory failure, likely multifactorial, with community acquired pneumonia, possibly mucus plugging as well as some component of pulmonary edema. Dose of Lasix given yesterday but does not appear to have improved much. Reluctant to give further aggressive diuresis in light of hypotension requiring pressors. Pulmonology following. Continue antibiotics with vancomycin and Zosyn for now. The patient is DNI now. 2. Shock, likely septic. The patient still remains on pressors with Levophed to maintain blood pressure. Suspect septic shock related to pneumonia as above. Continue antibiotics and monitor closely. 3. Left femur fracture. The patient remains unstable for surgery. Orthopedics evaluated the patient. We will reconsult Orthopedics if/when the patient is stable for surgery. 4. Down syndrome. Stable. Continue home medications. 5. Seizure disorder. Continue q.6 valproate. 6. Hypokalemia. Resolved. Continue to monitor labs. 7. Anemia. Stable. Likely anemia of chronic disease. Continue to monitor labs. 8. DVT prophylaxis with SCDs. 9. Disposition. The patient is now a DNR/DNI as above. Overall prognosis is guarded to poor. May transition to comfort care early next week if he continues to show a lack of improvement.
[2018-04-08] MEDS: DESYREL PO SCH (21:08)
--- NOTE | 2018-04-08 23:44 | INFECTIOUS DISEASE PROGRESS NO ---
DATE: 04/08/2018 PRESENT ILLNESS: The patient has a bilateral pneumonia and there may well be a component of pulmonary venous congestion also. Despite getting 6 days of antibiotics, his x-ray looks worse. The patient also had a urinary tract infection but that has been cleared. MEDICATIONS: This is the 6th day of treatment with a combination of vancomycin and Zosyn. PHYSICAL EXAMINATION: Vital Signs: Temperature is 97.8 degrees, pulse 87, respirations 16, blood pressure is 97/50. General: This is an ill-appearing middle-aged male. He is in no acute distress. Head/eyes/ears/nose/throat: He has an oxygen mask on. There is no drainage from the nose or the ears. Neck: No stiffness. Lungs: Clear to auscultation. Cardiovascular: Heart rate is regular. Abdomen: Soft and nontender. Neurologic: The patient has a depressed level of consciousness. He did not respond to verbal stimuli. He does not have a tremor. LAB AND RADIOLOGY: Chest x-ray shows the patient's infiltrates are worse. Creatinine is 1. GFR is greater than 60. Blood gases show a pH of 7.51, a PO2 of 95, and a pCO2 of 47. CBC shows a white count of 8080, hemoglobin 10.7, and platelet count 342,000. ASSESSMENT AND PLAN: I talked with the patient's mother. We decided that since the patient's x- ray is looking worse, that the current antibiotics are not helping with anything and I have stopped them. We further decided that instead of putting new antibiotics or getting a lot of further testing, we would wait and see how the patient did over the weekend and then on Wednesday make a final decision about whether his mother wants to keep him on comfort measures only. She repeatedly did tell me that she wants him comfortable and that was the primary thing she wanted. I further told her that I thought even if we could get him better, that he would have relapse and have to come back to the hospital. COMORBIDITIES: The patient has Down syndrome, sleep apnea, gastroesophageal reflux disease and seizure disorder. The patient also has benign prostatic hypertrophy. + cc: Reginald Hanley MD
[2018-04-09] MEDS: DUONEB (A & A) INH SCH ×6 (03:41→23:14)
[2018-04-09] MEDS: DEPACON 500 MG in NS 50 ML IV SCH ×4 (03:57→20:12)
[2018-04-09 05:12] LABS: ALLEN TEST YES; BE 14.2 mmoll (-3.0-3.0); BLOOD TYPE ARTERIAL; HCO3-(ACT) 35.7 mmoll (20.0-26.0); METHB 0.7 % (0.0-1.5); SAMPLE BLOOD; SAO2 87.8 % (95.0-100.0); THB 12.4 g/dL (11.5-17.4); pH(98.6) 7.46 (7.35-7.45)
[2018-04-09] MEDS: AZULFIDINE PO SCH ×3 (05:13→21:13)
[2018-04-09 05:27] LABS: PCO2(98.6) 57 mmHg (35-45); PO2(98.6) 49 mmHg (60-100)
[2018-04-09 05:28] LABS: MODALITY NRB
[2018-04-09] MEDS: SYNTHROID IV SCH (06:08)
[2018-04-09 06:53] LABS: AGAP 8; BUN 18 mg/dL (8-22); CHLORIDE 98 mmol/L (98-107); COSMO 287; CREATININE 0.9 mg/dL (0.7-1.2); ESTIMATED GFR > 60; GLUCOSE 99 mg/dL (70-104); POTASSIUM 3.9 mmol/L (3.5-5.1); SODIUM 143 mmol/L (136-145); TCO2 37 mmol/L (25-35)
[2018-04-09] MEDS: MUCOMYST 20% INH SCH ×2 (08:06→19:50)
--- NOTE | 2018-04-09 08:57 | Diag Imaging Result Doc PS360 ---
CHEST-1 VIEW - 04/09/2018 INDICATION: SOB COMPARISON: 04/08/2018 FINDINGS: Stable dense infiltrate in the right lung base and significant infiltrate in the left lung base. The upper lobes are clear. Heart size remains normal. No pneumothorax or large pleural effusion. IMPRESSION: No change from prior. Electronically signed by Felipe Marcos 04/09/2018 8:55 AM
[2018-04-09] MEDS: LEXAPRO PO SCH (09:38)
[2018-04-09] MEDS: RISPERDAL PO SCH ×2 (09:38→21:14)
[2018-04-09] MEDS ORDERED: VANCOMYCIN 1,600 MG in NS 250 ML IV SCH (11:00)
[2018-04-09] MEDS ORDERED: CALMOSEPTINE OINTMENT TOP PRN (12:30)
[2018-04-09] MEDS: LEVOPHED 8 MG in D5 1/2 NS 250 ML IV SCH (14:48)
--- NOTE | 2018-04-09 15:47 | PROGRESS NOTE ---
DATE: 04/09/2018 INTERVAL HISTORY: Patient remains on pressors with marginal blood pressure. Remains on non- rebreather with sats largely in the 89 to 91 range. She is slightly more awake today, but remains nonverbal and uncooperative. REVIEW OF SYSTEMS: Unable to obtain secondary to patient's mental status. LABORATORY DATA: pH 7.46, pCO2 of 57, PO2 of 49, O2 saturation 86% on 100% non- rebreather. Basic metabolic panel, remarkable.. IMAGING: Chest x-ray unchanged from previous. Still with stable dense infiltrate in the right lung base and significant infiltrate in the left lung base. VITAL SIGNS: T-max 99.2, pulse 92, respirations 21, blood pressure 110/54. O2 saturation 88 % on nonrebreather. PHYSICAL EXAMINATION: General: No acute distress. Vital signs as above. HEENT: Normocephalic. Atraumatic. Moist mucous membranes. No cervical adenopathy. Cardiovascular: Regular rate and rhythm. No murmurs, rubs, or gallops. Pulmonary: Diffuse rhonchi greater at the bases. Abdomen is soft, nontender, nondistended. Bowel sounds positive. Extremities: Peripheral pulses decreased but intact. No clubbing, cyanosis, or edema. Neurological: The patient's mental status: Occasional nonpurposeful movements. No clear focal deficits. Psychiatric: The patient awake but not really alert, nonverbal, noncooperative. Skin: No new rashes or lesions identified. ASSESSMENT AND PLAN: 1. Acute hypoxic respiratory failure, multifactorial with community-acquired pneumonia, possible mucus plugging as well as some pulmonary edema. Intermittent doses of Lasix appeared to have done very little. The patient remains too unstable to bronch without intubation as a backup. After discussion between family and Infectious Disease yesterday, antibiotics were stopped. Further discussion between me and the patient's sister today, they confirmed that they wished for him to be off antibiotics but are not ready to stop pressors and make him full comfort care yet. They will consider comfort care if it becomes a choice between keeping him comfortable or keeping his respiratory status stable. We will continue to monitor closely. ABG showing worsening hypoxia and hypercapnia. Prognosis likely grim. 2. Septic shock. The patient remains on pressors with Levophed with no real room to wean down. Likely related to pneumonia as above. Continue monitoring. 3. Left femur fracture. The patient remains unstable from surgery. Continue symptomatic treatment. 4. Down syndrome, stable. Continue home medications. 5. Seizure disorder. Continue valproate. 6. Hyperkalemia; remains resolved. 7. Anemia, stable. Likely anemia of chronic disease. 8. Deep vein thrombosis prophylaxis; Sequential compression devices. DISPOSITION: Patient DNR/DNI as above. Off antibiotics with a grim prognosis but family not yet ready to stop pressors. We will continue to monitor. [facility]
--- NOTE | 2018-04-09 15:56 | PULMONOLOGY PROGRESS NOTE ---
DATE: 04/09/2018 SUBJECTIVE: The patient is more awake this morning. He is currently on a non-rebreather. He is interactive. OBJECTIVE: Vital Signs: The patient has been afebrile for the last 24 hours. Blood pressure 98/54, heart rate 97, respiratory rate 24, oxygen saturation 91% on non-rebreather. HEENT: Pupils are equal and reactive. Oropharynx is clear. Neck: Supple. Chest: Reveals decreased breath sounds bilaterally. Bilateral rhonchi. Cardiac exam: S1,S2. Abdomen: Soft without hepatosplenomegaly. Extremities: Without edema. LABORATORIES: White blood count 8.08, hemoglobin 10.7, platelet count 342,000. Arterial blood gas reveals a pH of 7.46 pCO2 of 57, PO2 of 49 on non-rebreather. Sodium 143, potassium 3.9, chloride 98, bicarbonate 37. BUN 8, creatinine 0.9. X-RAYS: Chest x-ray is unchanged. IMPRESSION: A 58 year old with Down syndrome, bibasilar pneumonia, seizure disorder, hip fracture, acute hypoxemic and acute hypercapnic respiratory failure, gastroesophageal reflux disease. Patient's mental status is marginally improved today, but he does have some worsening hypoxemia. Family is at bedside and has requested not to place patient back on BiPAP. RECOMMENDATIONS: 1. Continue bronchial hygiene. 2. Continue oxygen for hypoxemic respiratory failure. He appears to be tolerating the non- rebreather. 3. Will not use BiPAP unless family requests. The patient will have some difficulty understanding why the BiPAP is in place. Family is currently discussing end-of-life issues with comfort measures with the hospitalist service. I agree with these discussion. cc: Dread Priest MD
[2018-04-09] MEDS: DESYREL PO SCH (21:13)
[2018-04-10] MEDS: DUONEB (A & A) INH SCH ×6 (03:39→23:11)
[2018-04-10] MEDS: DEPACON 500 MG in NS 50 ML IV SCH ×4 (03:43→20:04)
[2018-04-10 04:31] LABS: ALLEN TEST YES; BE 17.4 mmoll (-3.0-3.0); BLOOD TYPE ARTERIAL; HCO3-(ACT) 38.4 mmoll (20.0-26.0); METHB 0.7 % (0.0-1.5); O2(CT) 9.1 mL/dL (15.0-23.0); PCO2(98.6) 50 mmHg (35-45); SAMPLE BLOOD; THB 7.3 g/dL (11.5-17.4); pH(98.6) 7.53 (7.35-7.45)
[2018-04-10 04:32] LABS: PO2(98.6) 49 mmHg (60-100)
[2018-04-10 04:33] LABS: MODALITY NRB; O2HB 88.3 % (95.0-99.0)
[2018-04-10] MEDS: AZULFIDINE PO SCH ×3 (04:46→20:03)
[2018-04-10 05:00] LABS: AGAP 9; BUN 18 mg/dL (8-22); CALCIUM 9.1 mg/dL (8.8-10.2); CHLORIDE 99 mmol/L (98-107); COSMO 287; CREATININE 0.7 mg/dL (0.7-1.2); ESTIMATED GFR > 60; GLUCOSE 104 mg/dL (70-104); POTASSIUM 3.7 mmol/L (3.5-5.1); SODIUM 143 mmol/L (136-145); TCO2 35 mmol/L (25-35)
[2018-04-10] MEDS: SYNTHROID IV SCH (06:46)
--- NOTE | 2018-04-10 07:36 | Diag Imaging Result Doc PS360 ---
CHEST-1 VIEW - 04/10/2018 INDICATION: SOB COMPARISON: 04/09/2018 FINDINGS: There is new, significant collapse of the left lung with severe deviation of the mediastinum to the left. There is improved opacification throughout the right lung base. There is some strandy atelectasis in the right midlung as well as some pulmonary edema. IMPRESSION: Shifting opacities, with new significant collapse of the left lung causing deviation of the mediastinum. This may represent airway mucous plugging. Electronically signed by Felipe Marcos 04/10/2018 7:33 AM
[2018-04-10] MEDS: MUCOMYST 20% INH SCH ×2 (07:58→19:26)
[2018-04-10] MEDS: LEXAPRO PO SCH (08:42)
[2018-04-10] MEDS: RISPERDAL PO SCH ×2 (08:42→20:03)
[2018-04-10] MEDS: TYLENOL PO PRN (12:46)
--- NOTE | 2018-04-10 13:22 | PROGRESS NOTE ---
DATE: 04/10/2018 INTERVAL HISTORY: The patient remains on pressors with marginally improved blood pressure. Remains on a rebreather but with saturations occasionally in the low 90s, but have dropped as low as 70. He is somewhat more awake today but remains nonverbal and largely uncooperative. REVIEW OF SYSTEMS: Unable to obtain secondary to patient's mental status. LABS: ABG with pH 7.53, pCO2 50, PO2 49, O2 saturation is 90 on 100% nonrebreather. Basic metabolic panel unremarkable. IMAGING: Chest x-ray with shifting opacities, new collapse of the left lung likely due to mucus plugging. VITAL SIGNS: T-max 99.1 degrees, pulse 98, respirations 32, blood pressure 111/ 53, O2 saturation 89% on a nonbreather. PHYSICAL EXAMINATION: General: No acute distress. Vitals: As above. HEENT: Normocephalic, atraumatic. Moist mucous membranes. Neck: No cervical adenopathy. Cardiovascular: Regular rate and rhythm. No murmurs, rubs, or gallops. Pulmonary: Diffuse rhonchi remain, slightly decreased on the left but breath sounds are present. Abdomen: Soft, nontender , nondistended. Bowel sounds decreased but positive. Extremities: Peripheral pulses decreased but intact. No clubbing or cyanosis. Neurological: Awake, alert, but nonverbal, not really following any commands. Occasional nonpurposeful movements of the head and extremities. No clear focal deficits. Psychiatric: Oriented x0. Awake and alert. Some tracking with eyes but uncooperative, nonverbal, as above. Skin: No new rashes or lesions identified. ASSESSMENT AND PLAN: 1. Acute hypoxic respiratory failure, multifactorial with community-acquired pneumonia, intermittent mucus plugging, as well as some pulmonary edema. Lasix was largely ineffective. The patient remains too unstable to do a bronchoscopy without intubation as backup and the patient is [id number]. After discussion between family and infectious disease on 04/09/2018, antibiotics were stopped. We will continue discussions with family regarding end of life care. Currently, they wish to leave him off antibiotics. They do not wish intubation or BiPAP. They do wish to continue pressors. They do wish to continue all other conservative measures. Prognosis likely quite poor and family appears to understand this but has had difficulty in fully accepting this. We will keep discussing with the family. The family does want patient kept comfortable regardless. If it becomes a choice between keeping him comfortable or keeping his respiratory status stable, they have stated that they want him to be kept comfortable. 2. Septic shock. Patient remains on pressors with Levophed. Wean down very slightly. Continue monitoring. 3. Left femur fracture. Patient remains unstable for surgery. Continue symptomatic treatment as needed. 4. Down syndrome, stable. Continue home medications. 5. Seizure disorder. Continue valproate. 6. Hyperkalemia, resolved. 7. Anemia, stable. Likely anemia of chronic disease. 8. Deep venous thrombosis prophylaxis, sequential compression devices. 9. Disposition. The patient is a Do Not Resuscitate/Do Not Intubate. Off antibiotics with likely grim prognosis. Family wishes to continue other measures for now. [facility]
[2018-04-10] MEDS: MORPHINE IV PRN (13:23)
--- NOTE | 2018-04-10 13:48 | PULMONOLOGY PROGRESS NOTE ---
DATE: 04/10/2018 SUBJECTIVE: Patient resting quietly in his bed. Nursing staff reports he did eat breakfast this morning. He remains on non-rebreather. OBJECTIVE: Vitals: The patient has been afebrile for the last 24 hours. Blood pressure 134/56, heart rate 104, respiratory rate 29, oxygen saturation 91%. HEENT: Pupils are equal and reactive. Oropharynx is clear. Neck: Supple. Chest: Reveals decreased breath sounds left base. Cardiac exam: S1-S2. Abdomen: Obese and soft. Extremities: Without edema. LABORATORIES: Chest x-ray reveals increased atelectasis at the left base. IMPRESSION: A 58-year-old with Down syndrome, bibasilar pneumonia, seizure disorder, hip fracture, acute hypoxemic and acute hypercapnic respiratory failure, gastroesophageal reflux disease. Patient's family has requested not to the place patient on BiPAP due to discomfort. Clinically, he is marginal from a pulmonary standpoint, but has no increased work of breathing and appears comfortable. RECOMMENDATIONS: 1. Continue bronchial hygiene. 2. Continue oxygen for hypoxemic respiratory failure. 3. Avoid BiPAP at family's request, unless they have a change in the recommendation. 4. Continue Do Not Resuscitate 1/allow patient to have a natural if he does not do well. cc: Dread Priest MD
[2018-04-10] MEDS: DESYREL PO SCH (20:04)
[2018-04-11] MEDS: DUONEB (A & A) INH SCH ×6 (03:04→23:28)
[2018-04-11] MEDS: DEPACON 500 MG in NS 50 ML IV SCH ×4 (03:32→20:44)
[2018-04-11 04:49] LABS: ALLEN TEST YES; BE 13.3 mmoll (-3.0-3.0); BLOOD TYPE ARTERIAL; HCO3-(ACT) 35.3 mmoll (20.0-26.0); METHB 0.6 % (0.0-1.5); O2(CT) 14.3 mL/dL (15.0-23.0); O2HB 97.2 % (95.0-99.0); PCO2(98.6) 41 mmHg (35-45); PO2(98.6) 156 mmHg (60-100); SAMPLE BLOOD; SAO2 98.7 % (95.0-100.0); THB 10.2 g/dL (11.5-17.4)
[2018-04-11 04:51] LABS: MODALITY BI PAP; pH(98.6) 7.56 (7.35-7.45)
[2018-04-11] MEDS: AZULFIDINE PO SCH ×3 (05:33→20:44)
[2018-04-11] MEDS: SYNTHROID IV SCH (06:01)
--- NOTE | 2018-04-11 07:06 | Diag Imaging Result Doc PS360 ---
EXAM: CHEST-1 VIEW HISTORY: SOB TECHNIQUE: Chest single view COMPARISON: 04/10/2018 FINDINGS: Improved aeration to the left lung with decreased atelectasis. There are infiltrates in the lower lungs which persist. No cardiomegaly. IMPRESSION: Interval improvement on the left although the infiltrates in the right lung base are more dense. Electronically signed by Steve Lemus 04/11/2018 7:04 AM
[2018-04-11 07:15] LABS: AGAP 11; BUN 30 mg/dL (8-22); CHLORIDE 101 mmol/L (98-107); COSMO 294; CREATININE 1.1 mg/dL (0.7-1.2); ESTIMATED GFR > 60; GLUCOSE 115 mg/dL (70-104); POTASSIUM 4.1 mmol/L (3.5-5.1); SODIUM 144 mmol/L (136-145); TCO2 32 mmol/L (25-35)
[2018-04-11] MEDS: MUCOMYST 20% INH SCH ×2 (07:45→19:22)
[2018-04-11] MEDS: LEXAPRO PO SCH (08:02)
[2018-04-11] MEDS: RISPERDAL PO SCH ×2 (08:02→20:46)
--- NOTE | 2018-04-11 10:23 | Diag Imaging Result Doc PS360 ---
EXAM: CHEST-PORTABLE HISTORY: NGT placement TECHNIQUE: Chest abdomen COMPARISON: 5:14 AM FINDINGS: Interval placement of a nasogastric tube. This overlies the esophagus and stomach. There are dense infiltrates in the lower lungs similar to the prior exam. IMPRESSION: Nasogastric tube enters the stomach. Electronically signed by Steve Lemus 04/11/2018 10:21 AM
--- NOTE | 2018-04-11 11:54 | INFECTIOUS DISEASE PROGRESS NO ---
DATE: 04/11/2018 PRESENT ILLNESS: The patient had antibiotics discontinued 3 days ago and today the patient, if anything, looks better than he did then. He seems more alert. He was smiling and does not seem to have any problem breathing. MEDICATIONS: As mentioned above, three days ago we stopped his medications. PHYSICAL EXAMINATION: Vital Signs: Temperature is 99.3 degrees, pulse 85, respirations 16, blood pressure 93/55. Generally: The patient today looks better than he did 3 days ago. He has been smiling and does not appear to be having any difficulty breathing. Head/eyes/ears/nose/throat: No drainage was noted from the nose or ears. Neck: No stiffness. Lungs: Clear to auscultation. Cardiovascular: Heart rate is regular. Abdomen: Soft and nontender. Neurologic: Patient is more alert today. He has smiled a couple of times. He did not respond to verbal stimuli, however. Integument: No rash noted. LABORATORY AND RADIOLOGY: The patient's blood gases show a pH of 7.56, a PO2 of 156, a pCO2 of 41, creatinine is 1.1, GFR is greater than 60. Sputum culture grew normal rodrigue. Chest x-ray shows bilateral infiltrates similar to the x-ray the patient had 3 days ago. ASSESSMENT AND PLAN: 1. The patient does have pulmonary infiltrates, but he is looking better, so my plan now would be to continue to hold the antibiotics since the patient looks better since he stopped them, and I have ordered a procalcitonin level and also I have ordered a CBC. 2. Comorbidities: The patient has Down syndrome, sleep apnea, gastroesophageal reflux disease and seizure disorder. The patient also has benign prostatic hypertrophy. cc: Reginald Hanley MD
[2018-04-11] MEDS: LEVOPHED 8 MG in D5 1/2 NS 250 ML IV SCH (13:59)
--- NOTE | 2018-04-11 15:11 | PROGRESS NOTE ---
DATE: 04/11/2018 INTERVAL HISTORY: Patient with increasing respiratory distress and tachycardia last night. After discussion with family he was placed on BiPAP with some improvement. Appears fairly comfortable on BiPAP currently, but less awake and less responsive. No other acute events overnight. The patient was weaned off Levophed briefly this morning, but later had to be restarted. REVIEW OF SYSTEMS: Review of systems unable to obtain secondary to patient's mental status. LABS: ABG with pH 7.56, PC of 241, PO2 156, O2 sat 97% on 100% via BiPAP. Basic metabolic panel unremarkable. IMAGING: Chest x-ray with interim placement of nasogastric tube. Dense infiltrates in lower lungs similar to previous. Prior x-ray with interval improvement on the left, but in increased infiltrates at the right base. VITALS: T-max 99.2, pulse 95, respirations 18, blood pressure 101/54, O2 sat 96% on 100% via BiPAP. PHYSICAL EXAMINATION: General: No acute distress. Vitals: As above. HEENT: Normocephalic, atraumatic. Moist mucous membranes. No cervical adenopathy. Cardiovascular: Regular rate and rhythm. No murmurs, rubs or gallops. Pulmonary: Diffuse rhonchi remain essentially the same as previous. Abdomen: Soft, nontender, nondistended. Bowel sounds decreased, but present. Extremities: Peripheral pulses intact. No clubbing or cyanosis. Neurologic: Somnolent, but will arouse briefly. Less awake, less responsive than previous. No obvious focal deficits. Psychiatric: Somnolent, oriented x 0. Largely nonverbal at baseline. Skin: No new rashes or lesions identified. ASSESSMENT AND PLAN: 1. Acute hypoxic respiratory failure, multifactorial with community-acquired pneumonia, intermittent mucus plugging as well as some pulmonary edema. Lasix was largely ineffective. Patient remains too unstable for bronchoscopy. After discussion between family and Infectious Disease on 04/09 antibiotics were stopped, but family now uncertain about whether they wish antibiotics to be given or not. Family continues to be on board with DNI/DNR status. They do wish to continue pressors and all conservative measures. Prognosis likely quite poor. Family appears to understand the poor prognosis, but difficulty in accepting this. 2. Septic shock. Patient briefly off pressors with Levophed, but had to be restarted. Continue monitoring. 3. Left femur fracture. The patient remains unstable for surgery. Continue symptomatic treatment as needed. 4. Down syndrome, stable. Continue home medications. 5. Seizure disorder. Continue valproate. 6. Hyperkalemia, resolved. 7. Anemia, stable. Likely anemia of chronic disease. 8. DVT prophylaxis. SCDs. 9. Disposition: The patient remains DNR/DNI, but patient desiring all conservative measures pursued. PROGNOSIS: Quite poor.
[2018-04-11] MEDS: DESYREL PO SCH (20:46)
[2018-04-12] MEDS: DUONEB (A & A) INH SCH ×5 (03:15→19:55)
[2018-04-12] MEDS: DEPACON 500 MG in NS 50 ML IV SCH ×4 (04:15→21:04)
[2018-04-12 04:40] LABS: ALLEN TEST YES; BE 16.9 mmoll (-3.0-3.0); BLOOD TYPE ARTERIAL; HCO3-(ACT) 38.1 mmoll (20.0-26.0); METHB 0.8 % (0.0-1.5); O2(CT) 13.3 mL/dL (15.0-23.0); O2HB 95.8 % (95.0-99.0); PCO2(98.6) 47 mmHg (35-45); PO2(98.6) 84 mmHg (60-100); SAMPLE BLOOD; SAO2 97.6 % (95.0-100.0); THB 9.8 g/dL (11.5-17.4); pH(98.6) 7.55 (7.35-7.45)
[2018-04-12 04:42] LABS: MODALITY BI PAP
[2018-04-12 05:47] LABS: AGAP 10; BUN 30 mg/dL (8-22); CALCIUM 8.4 mg/dL (8.8-10.2); CHLORIDE 101 mmol/L (98-107); COSMO 296; ESTIMATED GFR > 60; GLUCOSE 110 mg/dL (70-104); POTASSIUM 3.8 mmol/L (3.5-5.1); SODIUM 145 mmol/L (136-145); TCO2 34 mmol/L (25-35)
[2018-04-12 05:50] LABS: BASO# 0.03 X1000 (0.0-0.2); BASO% 0.5 % (0.0-0.8); EOS# 0.06 X1000 (0.0-0.7); HEMATOCRIT 30.6 % (42.0-52.0); HEMOGLOBIN 9.4 g/dL (14.0-18.0); IMM GRAN# 0.03 X1000 (0.0-0.04); IMM GRAN% 0.5 % (0.0-0.5); LYMPH# 0.65 X1000 (1.2-3.4); LYMPH% 11.3 % (20.5-51.1); MCH 32.5 PG (27-31); MCHC 30.7 g/dL (33-37); MCV 105.9 FL (81-99); MONO% 10.5 % (1.7-9.3); NEUT# 4.36 X1000 (1.4-6.5); NEUT% 76.2 % (42.2-75.2); PLT 309 X1000 (130-400); RBC 2.89 XMIL (4.7-6.1); WBC 5.73 X1000 (4.8-10.8)
[2018-04-12] MEDS: SYNTHROID IV SCH (06:31)
[2018-04-12] MEDS: AZULFIDINE PO SCH (06:31)
[2018-04-12] MEDS: SODIUM CHLORIDE 0.9% INJ PRN (06:32)
--- NOTE | 2018-04-12 07:09 | Diag Imaging Result Doc PS360 ---
EXAM: CHEST-1 VIEW 04/12/2018 HISTORY: SOB TECHNIQUE: AP portable at 0527 COMMENT: Compared to 04/11/2018 the bibasilar opacities which were previously present have improved. There is some platelike opacity in the left upper lobe which was not previously present. IMPRESSION: Improved pulmonary edema and/or pneumonia. Slightly worsened left upper lobe atelectasis. Electronically signed by Markel Duval 04/12/2018 7:07 AM
[2018-04-12] MEDS: MUCOMYST 20% INH SCH (07:40)
[2018-04-12] MEDS: LEXAPRO PO SCH (08:17)
[2018-04-12] MEDS: RISPERDAL PO SCH ×2 (08:17→21:32)
[2018-04-12] MEDS: TYLENOL PO PRN (09:20)
--- NOTE | 2018-04-12 14:23 | PROGRESS NOTE ---
DATE: 04/12/2018 INTERVAL HISTORY: The patient is able to be off pressors for most of the night and some of the morning, but again had a decrease in blood pressure. Respiratory status stable to slightly improved on BiPAP, but remains extremely somnolent and difficult to arouse. The family initially stating that they wanted all conservative measures this morning, but when blood pressure again worsened and we were about to restart Levophed, family decided to make the patient comfort care. Removing BiPAP, pressors, and other medicines not for comfort. Will monitor in the ICU for now but if he appears to become relatively stable, then we will likely move to the floor. REVIEW OF SYSTEMS: Unable to obtain secondary to patient's mental status. LABS: WBC 5.7, hemoglobin 9.4, hematocrit 30.6, platelets 309,000. ABG with pH 7.55, pCO2 47, PO2 84, on 100% FiO2 via BiPAP. Basic metabolic panel essentially unremarkable. IMAGING: Chest x-ray with slightly improved pulmonary edema, but slightly worsened left upper lobe atelectasis. VITAL SIGNS: T-max 99.3 degrees, pulse 93, respirations 18, blood pressure 94/57, O2 saturation is 97% on BiPAP with 100% FiO2. PHYSICAL EXAMINATION: General: No acute distress. Vital signs: As above. HEENT: Normocephalic, atraumatic. On BiPAP. No cervical adenopathy. Cardiovascular: Slightly tachycardic but regular. No murmurs, rubs, or gallops. Pulmonary: Continues to have diffuse rhonchi. Abdomen: Soft, nontender, nondistended. Bowel sounds decreased but present. Extremities: Peripheral pulses intact. No clubbing or cyanosis. Neurologic: Markedly somnolent but reacts to noxious stimuli. No obvious focal deficits. Psychiatric: Markedly somnolent. Oriented x0. Remains largely nonverbal. Skin: No new rashes or lesions identified. ASSESSMENT AND PLAN: 1. Acute hypoxic respiratory failure, multifactorial with community-acquired pneumonia, intermittent mucus plugging, as well some pulmonary edema. Lasix was largely ineffective. Many long discussions with family. I initially planned on attempting further diuresis and restarting pressors but family now electing to make patient comfort care. We will discontinue BiPAP and pressors. Will make sure that comfort medications are available. 2. Septic shock. On and off pressors today. Now going to comfort care. 3. Left femur fracture. Unstable for surgery. Now comfort care. 4. Down syndrome. Continue home medications. 5. Seizure disorder. Continue valproate. 6. Hyperkalemia, resolved. 7. Anemia, stable. Likely anemia of chronic disease. 8. Disposition. Patient is now moving to comfort care. Will monitor in the ICU for now but if he stabilizes somewhat, we will plan on moving to the floor.
[2018-04-12] MEDS: MORPHINE IV PRN (17:18)
[2018-04-13] MEDS: DUONEB (A & A) INH SCH ×4 (00:15→12:15)
[2018-04-13] MEDS: DEPACON 500 MG in NS 50 ML IV SCH ×4 (02:55→22:59)
[2018-04-13] MEDS: MORPHINE IV PRN ×3 (06:14→21:35)
[2018-04-13] MEDS: SYNTHROID IV SCH (06:14)
[2018-04-13] MEDS: SODIUM CHLORIDE 0.9% INJ PRN (06:14)
[2018-04-13] MEDS: LEXAPRO PO SCH (09:38)
[2018-04-13] MEDS: RISPERDAL PO SCH ×2 (09:38→23:03)
--- NOTE | 2018-04-13 13:23 | PROGRESS NOTE ---
DATE: 04/13/2018 INTERVAL HISTORY: The patient now comfort care, moved to the floor. Remains on nonrebreather with intermittently low O2 saturations, but appears comfortable. No acute events overnight. Patient remains encephalopathic. REVIEW OF SYSTEMS: Unable to obtain secondary to patient mental status. VITALS: T-max 102.6 degrees, pulse 110, blood pressure 112/54, O2 saturation 80% on 100% nonrebreather. EXAM: General: No acute distress. Vitals: As above. HEENT: Normocephalic, atraumatic. No cervical adenopathy. Cardiovascular: Slightly tachycardic but regular. No murmurs, rubs or gallops. Pulmonary: A few scattered rhonchi, bibasilar crackles. Abdomen: Soft, nontender, nondistended. Bowel sounds decreased but present. Extremities: Peripheral pulses intact. No clubbing or cyanosis. Neurologic: Remains markedly somnolent, but reacts to noxious stimuli. Psychiatric: Oriented x 0, nonverbal even with the best of times. Skin: No new rashes or lesions identified. ASSESSMENT AND PLAN: The patient with acute hypoxic respiratory failure, which is multifactorial with a likely community-acquired pneumonia, intermittent mucus plugging while some pulmonary edema. Ongoing septic shock, which has been on and off pressors but now on comfort care. Also with left femur fracture which has not been able to be repaired, Down syndrome, underlying seizure disorder. Remains on a nonrebreather with marginal to moderately low O2 saturations and spiked a fever this morning. Pressors removed with blood pressure which is frequently low but relatively stable. Depending on course over the next 24 to 48 hours, may be appropriate for comfort care in the hospital versus hospice at a facility. The patient was in a residential prior to admission, so home hospice may be problematic.
[2018-04-13] MEDS: TRANSDERM-SCOP TD SCH (15:22)
[2018-04-13] MEDS: TYLENOL PR PRN (18:29)
[2018-04-14] MEDS: MORPHINE IV PRN ×5 (03:56→19:17)
[2018-04-14] MEDS: DEPACON 500 MG in NS 50 ML IV SCH ×4 (03:58→21:03)
[2018-04-14] MEDS: RISPERDAL PO SCH (08:11)
[2018-04-14] MEDS: TYLENOL PR PRN (08:11)
[2018-04-14] MEDS: ATIVAN IV PRN (23:03)
[2018-04-15] MEDS: RISPERDAL PO SCH ×3 (03:54→21:55)
[2018-04-15] MEDS: DEPACON 500 MG in NS 50 ML IV SCH ×4 (03:55→21:55)
--- NOTE | 2018-04-15 04:56 | PROGRESS NOTE ---
DATE: 04/14/2018 SUBJECTIVE: The patient is on a nonrebreather. He is stable, seems comfortable. Saturations are about 92% to 89%-90% and that is on a nonrebreather. He is actively dying. OBJECTIVE: Vital Signs: Pulse rate 95, blood pressure 103/57, temperature 97.8 degrees. Cardiovascular: Regular rate and rhythm. Pulmonary: Bilateral breath sounds with rhonchi, wheezes. Gastrointestinal: Soft, nontender, and nondistended. Bowel sounds are positive. LABORATORY DATA: No new data today. ASSESSMENT AND PLAN: This is a 58-year-old male with acute hypoxic respiratory failure, community- acquired pneumonia, mucus plugging, pulmonary edema, septic shock, and now has progressed to comfort care. He was here for a left femur fracture that was never repaired because I do not think he was ever stable enough for that to happen. He is a half-way patient. He is going to need comfort care. He is actively dying. His hypoxia continues to progress. There is really no way to get him home, there is no care for him with a hospice situation so I am going to pursue inpatient hospice G[facility], and we will continue comfort care measures. I do think that with his degree of hypoxia that his prognosis is very poor. I updated the family who is a mother and he still has half-way care providers who come in and check on him. cc: Sal Morrell MD
[2018-04-15] MEDS: MORPHINE IV PRN ×3 (05:35→14:41)
[2018-04-15] MEDS: ATIVAN IV PRN (10:17)
[2018-04-15] MEDS: ATROPINE 1 % OPHTH SOLN SL PRN ×2 (10:48→21:55)
[2018-04-15] MEDS ORDERED: MORPHINE IV PRN (16:40)
[2018-04-15] MEDS ORDERED: ASPIRIN PR PRN (16:41)
[2018-04-15] MEDS ORDERED: TYLENOL PR PRN (16:42)
[2018-04-15] MEDS: ATIVAN IV SCH (17:31)
--- NOTE | 2018-04-15 17:52 | PROGRESS NOTE ---
DATE: 04/15/2018 SUBJECTIVE: He is unresponsive. Seems to be doing okay. OBJECTIVE: Blood pressure is 89/31, heart rate 125, temperature of a 102.8 degrees. He is on a nonrebreather with saturations of 82%. PROBLEM LIST: Acute hypoxic respiratory failure, pneumonia, pulmonary edema, status post left femur fracture which has not been ever able to be remedied. He is actively dying from my standpoint. We will continue comfort care measures. There is really no way to take care of him at home and he will decompensate if he tries to get home so at this point we are just watching him very closely. cc: Sal Morrell MD
[2018-04-16] MEDS: ATIVAN IV SCH ×3 (02:13→19:54)
[2018-04-16] MEDS: DEPACON 500 MG in NS 50 ML IV SCH ×3 (04:36→19:53)
[2018-04-16 07:29] VITALS: BP 55/20
[2018-04-16] MEDS: RISPERDAL PO SCH (09:57)
[2018-04-16] MEDS: TRANSDERM-SCOP TD SCH (19:53)
--- NOTE | 2018-04-17 05:35 | DISCHARGE SUMMARY ---
ADMISSION DATE: 03/31/2018 DISCHARGE DATE: 04/16/2018 DISCHARGE DIAGNOSIS: 1. Acute on chronic respiratory failure. 2. Community-acquired pneumonia. 3. Mucus plugging. 4. Pulmonary edema. 5. Septic shock. 6. Left femur fracture. 7. Down syndrome. 8. Seizure disorder. CONSULTATIONS: 1. Dr. Ortega, neurology. 2. Dr. Hanley, infectious diseases. 3. Dr. Hoover, orthopedics. PROCEDURES: None. IMAGING: Head/cervical spine CT showed brain atrophy and arthropathy. Hip/pelvis x-ray showed a proximal left femur fracture. Abdominal/pelvic CT showed distal esophagitis, left intertrochanteric femur fracture. Chest CT showed basilar pulmonary edema versus mild pneumonia. SUMMARY: Briefly, this is a 58-year-old male actually admitted on the . He has Down syndrome, was in a nursing home. The patient was found to have left hip pain. Usually very active. He was transferred to [facility] for management because of his hip fracture. He was placed on Rocephin for possible aspiration. We went ahead and CT'd his abdomen, pelvis, thorax, and pursued ID consult so we can clear issues with fever and altered mental status. LP was entertained, but ID was consulted and he was placed on cefepime for a UTI which urine culture did not end up growing anything. Dr. Hoover was consulted and recommended trochanteric fixation nail when stable and he was continued for treatment. He became very obtunded and difficult to arouse. He was sent to the ICU and there was concern over meningitis and encephalitis. He was placed on vancomycin. CTA showed mucus plugging in his right upper lobe and pneumonia and had to be placed on BiPAP. He also was initiated on pressors. He was never able to get his left femur fracture adjusted. Pulmonary was consulted and recommended DuoNebs, Mucomyst, IV antibiotics. Echocardiogram showed an EF of 70%. No other major pathology, that was on the . He slowly improved. He was on vancomycin, and Zosyn and DuoNebs. He was never stable enough for other issues. Neurology was consulted because of his confusion and thought that possibly he had epilepsy. He had an EEG that did not clearly show seizures. The patient never really significantly improved. There was some component of pulmonary edema, so he was placed on diuretics and trying to get him on BiPAP. Lasix was given, but there was no issue there. The patient was made a Do Not Intubate. Antibiotics were stopped. We continued pressors and continued to follow closely there, but he did not really improve significant. On the and with Dr. Ceballos a long discussion with the mother, I believe is primary caregiver, and felt that continued treatment was not warranted or she did not want to pursue any further aggressive measures. We did keep him on his antiepileptics for comfort, but he was on a non-rebreather with persistence of O2 requirement and low oxygen levels and overall he continued to deteriorate. The morning of the , his blood pressure dropped into the 50s, temperature was 101.7, saturations were in the 70s on non-rebreather, and the patient passed around 14:20 and was pronounced. Cause of will be likely respiratory failure related to pneumonia, possible aspiration type pneumonia, and pulmonary edema acute. Family was aware and present during this process and counseled at the time of his . TIME: 32 minute discharge. cc: Sal Morrell MD
== END 2018-04-16 14:15 | disposition expired | DRG 193 ==
LOC: P.ED 13:02 → SUATTDRO 16:53 → 4N 16:53 → ICU 04-02 14:33 → 3N 04-12 22:59
PROVIDERS: ATTEND Internal Medicine
CPT/HCPCS: 51702; 70450; 71010; 71045; 71250; 71260; 71275; 72125; 73502; 74178; 80048; 80053; 80164; 80165; 80202; 81001; 82805; 82948; 83605; 83735; 83880; 84145; 84484; 85025; 85610; 86850; 86900; 86901; 87040; 87070; 87088; 87205; 87275; 87276; 87804; 93005; 93306; 93308; 94640; 94660; 94667; 94760; 94761; 94762; 96365; 96367; 96375; 99285; A9270; J0131; J0456; J0692; J0696; J1720; J1885; J1940; J2060; J2175; J2270; J2310; J2405; J2543; J3370; J3480; J7030; J7040; J7050; Q9967; XXXXX